=== PATIENT | male | born 1965 | race Caucasian/White ===

== ENCOUNTER 2020-06-05 09:48 | Emergency (ER) | payer SELFPAY ==
[2020-06-05 09:57] VITALS: BP 154/79; PULSE 85; RESP 16; TEMP 36.4; O2SAT 98; BMI 30.7
--- NOTE | 2020-06-05 10:20 | ED_ITS ---
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 He reports intermittent nausea and the pain is burning in nature. He also reports difficulty urinating and painful urination. He has history of UTI in the past but it has been several years. Denies fever, chills, vomiting, diarrhea. No sick contacts, no chest pain, SOB. MD elicited complaint: abdominal pain Pertinent past history: none Onset (ago): day(s) (5) Pain Consistency: constant Location: RUQ Severity: moderate Quality: burning Radiation: R flank and back Migration to: no migration Exacerbating factors: movement Relieving factors: nothing Associated symptoms: nausea Related Data Previous Rx's Medication Instructions Recorded ondansetron HCl [Zofran] 4 mg PO Q8H PRN #7 tab 06/05/20 oxycodone 5 mg PO Q8H PRN #6 tab 06/05/20 valacyclovir [Valtrex] 1,000 mg PO TID #21 tab 06/05/20 Allergies Allergy/AdvReac Type Severity Reaction Status Date / Time No Known Allergies Allergy Verified 06/05/20 10:00 Review of Systems Review of Systems Constitutional: No Fever, No Chills ENT/Mouth: No sore throat, No Rhinorrhea, No Swallowing Difficulty Eyes: No Eye Pain, No Swelling, No Redness Cardiovascular: No Chest Pain, No SOB, No Orthopnea, No Edema Respiratory: No Cough, No Sputum, No Wheezing, No dyspnea Gastrointestinal: + Nausea, No Vomiting, No Diarrhea, + abdominal Pain, No Hematochezia, No Melena Genitourinary: + Dysuria, No Urinary Frequency, No Hematuria Musculoskeletal: No joint pain, No Myalgias Skin: No Skin Lesions, + rash Neuro: No Weakness, No Numbness, No Dizziness, No Headache Psych: No Anxiety/Panic, No Depression Heme/Lymph: No Bruising, No Lymphadenopathy Endocrine: No Polyuria, No Polydipsia Physical Exam Vital Signs: Vital Signs: Last Vital Signs Temp 97.5 F 06/05/20 09:57 Pulse 85 12/23/20 09:57 Resp 16 06/05/20 09:57 BP 154/79 H 06/05/20 09:57 Pulse Ox 98 06/05/20 09:57 Body Mass Index 30.7 Appearance: Alert. Oriented X3. No acute distress. Eyes: Pupils equal, round and reactive to light. ENT: Pharynx normal. Neck: Normal inspection. Neck supple. CVS: Normal heart rate and rhythm. Pulses normal. Respiratory: No respiratory distress. Breath sounds normal. Abdomen: Soft and nontender. +BS x4 Skin: Skin warm and dry. Normal skin color. Unilateral erythematous vesicular rash in RUQ in single dermatome wrapping around to back, tender Extremities: No lower extremity edema. Neuro: Oriented X 3. No motor deficit. No sensory deficit. Course Course Course Narrative: 55 y/o male presenting with RUQ abd pain - exam shows vesicular unilateral rash in a dermatome distribution consistent with Shingles. Will treat. Also reports dysuria, will check UA. No signs of systemic infection. VSS and patient appears non-toxic. Reevaluation(s) Reevaluation #1: UA negative for infection. He is stable for discharge with treatment for herper zoster. MDM - Abdominal Pain Lab Data Labs: Lab Results 06/05/20 Range/Units 10:44 Urine Color YELLOW Urine Appearance CLEAR Urine pH 5.5 (5.0-8.0) Ur Specific Ehrhardt 1.020 (1.005-1.025) Urine Protein NEG (NEG-TRACE) MG/DL Urine Glucose (UA) >=1000 H (NEG) MG/DL Urine Ketones NEG (NEG) MG/DL Urine Blood NEG (NEG) Urine Nitrite NEG (NEG) Ur Leukocyte Esterase NEG (NEG) Critical Care Time Critical Care Time Critical Care Time: No Discharge Plan Discharge Clinical Impression: Shingles Qualifiers: Herpes zoster complications: without complications Qualified Code(s): B02.9 - Zoster without complications Patient Disposition: Home, Self-Care Instructions: Shingles (ED) Additional Instructions: Your exam is consistnet with a viral infection called Shingles or Herpes Zoster. Take the prescribed anti-viral medication to treat it. Follow up with your doctor this week. Your urine test did not show any evidence of infection. If you develop worsening symptoms or any new or concerning symptom come back to the ER for further evalution. Prescriptions: New valacyclovir [Valtrex] 1 gram tablet 1,000 mg PO TID Qty: 21 RF: 0 ondansetron HCl [Zofran] 4 mg tablet 4 mg PO Q8H PRN (Reason: nausea and vomiting) Qty: 7 RF: 0 oxycodone 5 mg tablet 5 mg PO Q8H PRN (Reason: pain) Qty: 6 RF: 0 PMFSH Past Medical History Attestation statement: The following information was validated with the patient. Medical History Diabetes Social History Social History Advance Directives: No Advance Directives Information Provided: No
[2020-06-05 10:59] LABS: Glucose Urine UA >=1000 MG/DL (NEG); Leukocyte Esterase Urine NEG (NEG); Nitrite Urine NEG (NEG); PH 5.5 (5.0-8.0); Urine Blood NEG (NEG); Urine Ketones NEG (NEG); Urine Protein NEG (NEG-TRACE)
[2020-06-05 11:01] LABS: Appearance Urine CLEAR; Color Urine YELLOW
[2020-06-05 11:17] LABS: RBC Urine 0 /HPF (0); WBC Urine 0 /HPF (0-4)
== END 2020-06-05 11:36 | disposition home or self-care (01) ==
LOC: HO.ED 10:46
PROVIDERS: Physician Assistant; Emergency Provider Emergency Medicine; PCP Internal Medicine
DX: B02.9 Zoster without complications (principal); E11.9 Type 2 diabetes mellitus without complications
CPT/HCPCS: 81001; 81003; 99283

== ENCOUNTER 2020-06-09 12:28 | Emergency (ER) | payer SELFPAY ==
[2020-06-09 13:08] VITALS: BP 129/72; PULSE 99; RESP 18; TEMP 36.8; O2SAT 100; BMI 29.0
--- NOTE | 2020-06-09 17:07 | ED.GENADULT ---
HPI - General Adult General Chief complaint: General Medical Stated complaint: rash on side Time Seen by Provider: 06/09/20 16:25 Source: patient Mode of arrival: EMS Limitations: language barrier (Speaks some Mohawk, primary language David. This author speaks this language fluently.) History of Present Illness HPI narrative: 55-year-old male who was seen here 06/05/2020 for right-sided abdominal rash diagnosed with shingles he was subsequently given Valtrex and pain management states that his rash on the right side abdomen is getting better he is here for recheck as well he is requesting refill for his metformin. He is currently awaiting new PCP. Denies any headache, facial rash, chest pain, abdominal pain, nausea vomiting or diarrhea. Onset (ago): day(s) Severity: mild Exacerbating factors: none Treatments prior to arrival: none Related Data Previous Rx's Medication Instructions Recorded ondansetron HCl [Zofran] 4 mg PO Q8H PRN #7 tab 06/05/20 oxycodone 5 mg PO Q8H PRN #6 tab 06/05/20 valacyclovir [Valtrex] 1,000 mg PO TID #21 tab 06/05/20 doxycycline monohydrate 100 mg PO BID 10 Days #20 cap 06/09/20 metformin 1,000 mg PO DAILY 30 Days #30 tab 06/09/20 Allergies Allergy/AdvReac Type Severity Reaction Status Date / Time No Known Allergies Allergy Verified 06/05/20 10:00 Review of Systems Review of Systems: Constitutional: No Weight loss, No Fever, No Chills, No Night Sweats, No Fatigue, No Malaise ENT/Mouth: No Hearing loss, No Ear Pain, No Nasal Congestion, No Sinus Pain, No Hoarseness, No sore throat, No Rhinorrhea, No Swallowing Difficulty Eyes: No Eye Pain, No Swelling, No Redness, No Foreign Body, No Discharge, No Vision Changes Cardiovascular: No Chest Pain, No SOB, No Dyspnea on Exertion, No Orthopnea, No Edema, No Palpitations Respiratory: No Cough, No Sputum, No Wheezing, No Smoke Exposure, No Dyspnea Gastrointestinal: No Nausea, No Vomiting, No Diarrhea, No Constipation, No abdominal Pain Genitourinary: no irregular bleeding, No Dysuria, No Urinary Frequency, No Hematuria, No Urinary Incontinence, No Urgency, No Flank Pain Musculoskeletal: No joint pain, No Myalgias, No Joint Swelling Skin: No Skin Lesions, As noted in HPI Neuro: No Weakness, No Numbness, No Paresthesias, No Loss of Consciousness, No Dizziness, No Headache Psych: No Social Issues Heme/Lymph: No Bruising, No Bleeding,No Lymphadenopathy Endocrine: No Polyuria, No Polydipsia, No Temperature Intolerance Yes all other systems are reviewed and are negative [facility] Past Medical History Medical History Diabetes Social History Social History Advance Directives: No Advance Directives Information Provided: No Physical Exam Vital Signs: Vital Signs: Last Vital Signs Temp 98.3 F 06/09/20 13:08 Pulse 99 06/09/20 13:08 Resp 18 06/09/20 13:08 BP 129/72 06/09/20 13:08 Pulse Ox 100 06/09/20 13:08 Body Mass Index 29.0 Reviewed Const: General: cooperative and healthy appearing; No acute distress or intoxicated appearing Nutritional Appearance: average body habitus Orientation/consciousness: patient oriented x3 HENMT: Head: Yes normal to inspection Ears: hearing grossly normal bilaterally Eyes: General: appearance normal, both eyes and all related structures Visual Melvin: normal visual melvin by confrontation Chest: Chest palpation & inspection: normal inspection of the chest Resp: Effort & Inspection: normal respiratory effort Cardio: Jugular venous distension: no JVD Rhythm: regular rhythm Heart sounds: S1 normal heart sound present and S2 normal heart sound present GI: Other: Inspection: Yes normal to inspection Palpation (GI): Soft to palpation Percussion: Yes normal to percussion Auscultation: normal bowel sounds : General: Yes no CVA tenderness Back/Spine/Pelvis: Back: no CVA tenderness Skin: General skin exam: no rashes or lesions noted Neuro: General: patient oriented x3 Extrem: General: Yes normal to inspection Course Course Course Narrative: I saw this patient along with Barbara BADILLO on the the shingle rash is starting to scab over there is some very mild erythema. Will start him on doxycycline for this. Additionally he is requesting courtesy bridging prescription for metformin which he is taking 1000 mg once daily. His last POC was this morning within normal limits. He is awaiting new primary care doctor. Discharge Plan Discharge Clinical Impression: Herpes zoster Qualifiers: Herpes zoster complications: unspecified herpes zoster complication Qualified Code(s): B02.8 - Zoster with other complications Patient Disposition: Home, Self-Care Instructions: Shingles (ED), Cellulitis (ED) Additional Instructions: The shingles are improving Continue with her antiviral therapy as discussed I will start you on oral antibiotics for the slight redness that can be associated with some early cellulitis which is a skin infection Keep site covered Return if any concerns or worsening symptoms Otherwise follow up with primary care doctor as discussed Thank you Prescriptions: New doxycycline monohydrate 100 mg capsule 100 mg PO BID 10 Days Qty: 20 RF: 0 metformin 1,000 mg tablet 1,000 mg PO DAILY 30 Days Qty: 30 RF: 1 No Action valacyclovir [Valtrex] 1 gram tablet 1,000 mg PO TID Qty: 21 RF: 0 ondansetron HCl [Zofran] 4 mg tablet 4 mg PO Q8H PRN (Reason: nausea and vomiting) Qty: 7 RF: 0 oxycodone 5 mg tablet 5 mg PO Q8H PRN (Reason: pain) Qty: 6 RF: 0 Referrals: Liana Stacy MD [Primary Care Provider] - 1 week Interventions: ED Discharge Assessment Last Done: 06/09/20 17:21 Discharge Date/Time: 06/09/20 17:26
== END 2020-06-09 17:26 | disposition home or self-care (01) ==
PROVIDERS: Emergency Provider Emergency Medicine; PCP Internal Medicine
DX: B02.8 Zoster with other complications (principal); R21 Rash and other nonspecific skin eruption; Z79.899 Other long term (current) drug therapy
CPT/HCPCS: 99283

== ENCOUNTER 2020-12-23 09:34 | Outpatient (REF) | payer SELFPAY ==
[2020-12-23 10:41] LABS: Estimated Average Glucose 183 mg/dL
[2020-12-23 10:51] LABS: Creatinine Urine 78.27 mg/dL; Microalbum/Creatinine Ratio Ur 10.2 ug/mg cr
[2020-12-23 10:54] LABS: Alanine Aminotransferase 24 U/L (0-40); Albumin Level 4.2 g/dL (3.5-5.0); Alkaline Phosphatase 50 U/L (39-117); Anion Gap 11 (12-20); Aspartate Amino Transferase 16 U/L (5-37); Bilirubin Total 1.7 mg/dL (0.0-1.0); Blood Urea Nitrogen 16 mg/dL (9-16); Calcium 9.4 mg/dL (8.4-10.2); Carbon Dioxide 26 mmol/L (22-29); Chloride 105 mmol/L (96-108); Cholesterol 205 mg/dL; Estimated Glomerular Filt Rate > 60; Glucose Random 204 mg/dL (60-115); HDL Cholesterol 65 mg/dL; LDL Cholesterol Calculated 126 mg/dl; Potassium 4.4 mmol/L (3.3-5.1); Sodium 138 mmol/L (135-145); Total Protein 6.8 g/dL (6.5-8.0); Triglycerides 74 mg/dL
== END 2020-12-23 09:35 | disposition home or self-care (01) ==
LOC: HO.LAB 09:34
PROVIDERS: PCP Internal Medicine; Visit Provider Internal Medicine
DX: A60.02 Herpesviral infection of other male genital organs (principal); E11.65 Type 2 diabetes mellitus with hyperglycemia; I10 Essential (primary) hypertension; N48.6 Induration penis plastica
CPT/HCPCS: 36415; 80053; 80061; 82043; 83036

== ENCOUNTER → 2021-02-20 11:50 | Outpatient (BNVA) | payer SELFPAY | PROVIDERS: PCP Internal Medicine; Visit Provider Urology | DX: N47.1 Phimosis (principal); N48.6 Induration penis plastica | CPT/HCPCS: 99202 ==

== ENCOUNTER 2021-04-01 10:05 | Outpatient (REF) | payer SELFPAY ==
[2021-04-01 11:07] LABS: Estimated Average Glucose 203 mg/dL; Hemoglobin A1c % 8.7 %
[2021-04-01 11:40] LABS: Alanine Aminotransferase 23 U/L (0-40); Albumin Level 4.4 g/dL (3.5-5.0); Alkaline Phosphatase 53 U/L (39-117); Anion Gap 12 (12-20); Aspartate Amino Transferase 16 U/L (5-37); Bilirubin Total 1.5 mg/dL (0.0-1.0); Blood Urea Nitrogen 14 mg/dL (9-16); Calcium 9.2 mg/dL (8.4-10.2); Carbon Dioxide 27 mmol/L (22-29); Chloride 105 mmol/L (96-108); Cholesterol 171 mg/dL; Estimated Glomerular Filt Rate > 60; Glucose Random 214 mg/dL (60-115); HDL Cholesterol 56 mg/dL; LDL Cholesterol Calculated 98 mg/dl; Sodium 139 mmol/L (135-145); Total Protein 6.9 g/dL (6.5-8.0); Triglycerides 88 mg/dL
== END 2021-04-01 10:06 | disposition home or self-care (01) ==
LOC: HO.LAB 10:05
PROVIDERS: PCP Internal Medicine; Visit Provider Internal Medicine
DX: E11.65 Type 2 diabetes mellitus with hyperglycemia (principal); I10 Essential (primary) hypertension; L84 Corns and callosities; N30.00 Acute cystitis without hematuria; R80.9 Proteinuria, unspecified
CPT/HCPCS: 36415; 80053; 80061; 83036

== ENCOUNTER 2021-07-15 11:16 | Outpatient (REF) | payer MEDICAID, OTHER, SELFPAY ==
[2021-07-15 12:15] LABS: Estimated Average Glucose 209 mg/dL; Hemoglobin A1c % 8.9 %
[2021-07-15 12:38] LABS: Alanine Aminotransferase 26 U/L (0-40); Albumin Level 4.4 g/dL (3.5-5.0); Alkaline Phosphatase 60 U/L (39-117); Anion Gap 12 (12-20); Aspartate Amino Transferase 15 U/L (5-37); Bilirubin Total 1.6 mg/dL (0.0-1.0); Blood Urea Nitrogen 15 mg/dL (9-16); Calcium 9.7 mg/dL (8.4-10.2); Carbon Dioxide 28 mmol/L (22-29); Chloride 104 mmol/L (96-108); Estimated Glomerular Filt Rate > 60; Glucose Random 306 mg/dL (60-115); Potassium 5.1 mmol/L (3.3-5.1); Sodium 139 mmol/L (135-145); Total Protein 7.2 g/dL (6.5-8.0)
== END 2021-07-15 11:17 | disposition home or self-care (01) ==
LOC: HO.LAB 11:16
PROVIDERS: PCP Internal Medicine; Visit Provider Internal Medicine
DX: Z00.01 Encounter for general adult medical examination with abnormal findings (principal); E11.65 Type 2 diabetes mellitus with hyperglycemia; R80.9 Proteinuria, unspecified; Z91.14 Patient's other noncompliance with medication regimen
CPT/HCPCS: 36415; 80053; 83036

== ENCOUNTER 2021-09-26 11:53 | Outpatient (REF) | payer MEDICAID, OTHER, SELFPAY ==
[2021-09-26 13:35] LABS: Alanine Aminotransferase 21 U/L (0-40); Albumin Level 4.2 g/dL (3.5-5.0); Alkaline Phosphatase 59 U/L (39-117); Anion Gap 11 (12-20); Aspartate Amino Transferase 13 U/L (5-37); Bilirubin Total 1.5 mg/dL (0.0-1.0); Blood Urea Nitrogen 12 mg/dL (9-16); Calcium 9.6 mg/dL (8.4-10.2); Carbon Dioxide 29 mmol/L (22-29); Chloride 103 mmol/L (96-108); Estimated Glomerular Filt Rate > 60; Glucose Random 280 mg/dL (60-115); Potassium 4.8 mmol/L (3.3-5.1); Sodium 138 mmol/L (135-145); Total Protein 6.9 g/dL (6.5-8.0)
[2021-09-26 13:46] LABS: Estimated Average Glucose 229 mg/dL; Hemoglobin A1c % 9.6 %
== END 2021-09-26 11:54 | disposition home or self-care (01) ==
LOC: HO.LAB 11:53
PROVIDERS: PCP Internal Medicine; Visit Provider Internal Medicine
DX: E11.65 Type 2 diabetes mellitus with hyperglycemia (principal); R80.9 Proteinuria, unspecified
CPT/HCPCS: 36415; 80053; 83036

== ENCOUNTER 2021-11-11 10:28 | Emergency (ER) | payer MEDICAID, OTHER, SELFPAY ==
--- NOTE | ~2021-11-11 | XR_ITS ---
EXAMINATION: XR KNEE, RIGHT CLINICAL INFORMATION: Right knee pain COMPARISON: None TECHNIQUE: Four views of the right knee. FINDINGS: No joint effusion, fracture, dislocation or destructive process. XR/XR knee RT 2V IMPRESSION: Unremarkable study. No acute findings.
[2021-11-11 11:02] VITALS: BP 117/73; PULSE 83; RESP 18; TEMP 36.8; O2SAT 98; BMI 27.3
--- NOTE | 2021-11-11 13:09 | ED_ITS ---
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 Patient tells me when he walks he feels like his knee is unstable and gives out on him. Patient also feels like there is swelling. Patient denies any redness, warmth, fevers, chill s. Related Data Previous Rx's Medication Instructions Recorded ondansetron HCl 4 mg tablet 4 mg PO Q8H PRN #7 tab 06/05/20 (Zofran) oxycodone 5 mg tablet 5 mg PO Q8H PRN #6 tab 06/05/20 valacyclovir 1 gram tablet 1,000 mg PO TID #21 tab 06/05/20 (Valtrex) doxycycline monohydrate 100 mg 100 mg PO BID 10 Days #20 cap 06/09/20 capsule metformin 1,000 mg tablet 1,000 mg PO DAILY 30 Days #30 tab 06/09/20 clotrimazole-betamethasone 1 1 appl TOPICAL BID 28 Days #15 g 02/20/21 %-0.05 % topical cream naproxen 500 mg tablet 500 mg PO BID PRN #30 tab 11/11/21 Allergies Allergy/AdvReac Type Severity Reaction Status Date / Time No Known Allergies Allergy Verified 11/11/21 11:00 Review of Systems Review of Systems: Yes all other systems are reviewed and are negative Constitutional: Constitutional: Reports no additional constitutional complaints, Denies body ache(s), Denies chills, Denies fever(s), Denies headache(s) and Denies weakness Eyes: Eyes: Reports no additional eye complaints and Denies change in vision ENT: Reports system reviewed and no additional complaints, except as documented, Denies dizziness, Denies headache(s), Denies nasal congestion, Denies nasal discharge and Denies neck pain Cardiovascular: Cardiovascular: Reports no additional cardiovascular complaints, Denies chest pain, Denies leg edema and Denies dyspnea Respiratory: Respiratory: Reports no additional respiratory complaints, Denies cough and Denies dyspnea Gastrointestinal: Gastrointestinal: Reports no additional gastrointestinal complaints, Denies abdominal pain, Denies diarrhea, Denies nausea and Denies vomiting Genitourinary: Genitourinary: Denies urinary incontinence Musculoskeletal: Musculoskeletal: Reports no additional musculoskeletal complaints, Denies back pain, Reports arthralgias, Reports joint swelling, Denies neck pain, Denies numbness and Denies tingling Integumentary/Breasts: Skin/Breast: Reports system reviewed and no additional complaints, except as docu and Denies rash Neurologic: Reports system reviewed and no additional complaints, except as documented, Denies Abnormal speech present, Denies dizziness, Denies headache(s), Denies numbness, Denies tingling and Denies weakness PMF Past Medical History Attestation statement: The following information was validated with the patient. Source: old records reviewed and nursing notes reviewed Medical History Diabetes Social History Social History Advance Directives: No Advance Directives Information Provided: No Physical Exam Vital Signs: Vital Signs: Last Vital Signs Temp 98.3 F 11/11/21 11:02 Pulse 83 11/11/21 11:02 Resp 18 11/11/21 11:02 BP 117/73 11/11/21 11:02 Pulse Ox 98 11/11/21 11:02 BMI result Body Mass Index 27.3 Const: General: cooperative, healthy appearing, comfortable and no acute distress Orientation/consciousness: patient oriented x3 Limitations: no limitations HEENT: Head: Yes normal to inspection Ears: hearing grossly normal bilaterally General nose exam: Normal external nose present Face and sinus: Yes normal facial exam Mouth: Normal oral and palatal mucosa present Throat: Yes posterior oropharynx normal Eyes: General: appearance normal, both eyes and all related structures Pupils: Equal, round and reactive pupils present Neck: Neck: Yes normal visual inspection Chest: Chest palpation & inspection: normal inspection of the chest Resp: Effort & Inspection: normal respiratory effort Auscultation: clear to auscultation bilaterally Cardio: Rate: regular rate Rhythm: regular rhythm Peripheral pulses: Peripheral pulses 2+ throughout GI: Inspection: Yes normal to inspection Palpation (GI): Soft to palpation and nontender Auscultation: normal bowel sounds Back/Spine/Pelvis: Thoracic/Lumbar Spine: thoracic and lumbar spine normal to inspection Skin: General skin exam: no rashes or lesions noted Neuro: General: patient oriented x3, no focal motor deficits and normal sensation to monofilament Cranial nerves: Yes Equal, round and reactive pupils present Cognition (Neuro): normal cognition Speech: No Abnormal speech present Gait exam (Neuro): Normal gait present Motor exam (neuro): 5/5 motor strength present throughout Extrem: Other: There is pain and swelling to the medial ligament on the right knee. Flexion and extension is normal. There is some laxity with valgus stress test. No swelling, warmth, redness General: Yes normal to inspection Course Course Course Narrative: 56-year-old male here with right knee pain after twisting injury 2 months ago. There is swelling and tenderness along the medial joint line and medial ligament. X-ray show no bony abnormality. Likely MCL sprain. Patient given ca ne due to age, Shay wrap for home. Recommend NSAID and follow-up with Orthopedics. Reviewed worrisome signs and symptoms of when to return to the emergency department. Comfortable discharge home. Reviewed rice [facility] - Extremity Injury (Lower) Medical Records Attestation: I reviewed the patient's medical records. Lab Data Attestation: I reviewed the patient's lab results. Imaging Data knee x-ray: Attestation: I personally reviewed and interpreted this imaging study as follows: Radiologist's impression: EXAMINATION: XR KNEE, RIGHT? CLINICAL INFORMATION: Right knee pain? COMPARISON: None? TECHNIQUE: Four views of the right knee. FINDINGS: No joint effusion, fracture, dislocation or destructive process.? XR/XR knee RT 2V IMPRESSION: Unremarkable study. No acute findings. ? Procedures Procedure Narrative Procedure Narrative: shay wrap, cane Discharge Plan Discharge Clinical Impression: MCL sprain of right knee Patient Disposition: Home, Self-Care Instructions: Knee Sprain (ED) Additional Instructions: Rest, limit weight-bearing, use Shay wrap for comfort Ice to the area Follow-up with Orthopedics Prescriptions: New naproxen 500 mg tablet 500 mg PO BID PRN (Reason: pain) Qty: 30 0RF No Action valacyclovir [Valtrex] 1 gram tablet 1,000 mg PO TID Qty: 21 0RF ondansetron HCl [Zofran] 4 mg tablet 4 mg PO Q8H PRN (Reason: nausea and vomiting) Qty: 7 0RF oxycodone 5 mg tablet 5 mg PO Q8H PRN (Reason: pain) Qty: 6 0RF Rx Instructions: for 3 days doxycycline monohydrate 100 mg capsule 100 mg PO BID 10 Days Qty: 20 0RF metformin 1,000 mg tablet 1,000 mg PO DAILY 30 Days Qty: 30 1RF clotrimazole-betamethasone 1-0.05 % cream 1 appl topical BID 28 Days Qty: 15 0RF Rx Instructions: Apply thin coat 2 times per day Referrals: [facility] [place] [facility] [Provider Group] - 1 week (as needed) Liana Stacy MD [Primary Care Provider] - 1 week (as needed) Stand Alone Forms: Work/School Release Interventions: ED Discharge Assessment Last Done: 11/11/21 13:09
== END 2021-11-11 13:11 | disposition home or self-care (01) ==
PROVIDERS: Emergency Provider Emergency Medicine; PCP Internal Medicine
DX: S83.91XA Sprain of unspecified site of right knee, initial encounter (principal); X50.1XXA Overexertion from prolonged static or awkward postures, initial encounter; E11.9 Type 2 diabetes mellitus without complications; Y93.41 Activity, dancing; Y92.9 Unspecified place or not applicable; Y99.9 Unspecified external cause status
CPT/HCPCS: 73560; 99283

== ENCOUNTER 2021-12-02 09:11 | Emergency (ER) | payer MEDICAID, OTHER, SELFPAY ==
[2021-12-02 09:17] VITALS: BP 141/72; PULSE 88; RESP 16; TEMP 37.1; O2SAT 98; BMI 26.6
--- NOTE | 2021-12-02 10:05 | ED.EXTPRO ---
HPI - Extremity Problem General Chief complaint: Extremity Problem Stated complaint: r knee pain Time Seen by Provider: 12/02/21 09:30 Source: patient and radiologist chief of breast imaging (David) Mode of arrival: ambulatory Limitations: language barrier (David) History of Present Illness HPI Narrative: 56-year-old male here with reports of right knee pain and swelling for 2 months. Patient initially had an injury while he was dancing. He tells me he had a twisting injury at that time. Since then he is having intermittent pain and swelling. He was seen here on November 11 in the emergency room. He had x-rays which showed no acute finding. It was recommended he follow-up with his primary care doctor. He did see his primary care doctor was given referral to physical therapy. He tells me that he has been unable to establish an appointment and he thinks it is secondary to his language barrier. He is using naproxen once every other day. Still having continued pain and swelling which is worsened with weight-bearing it feels like the knee is unstable. No redness, warmth, fevers or chills. Related Data Previous Rx's Medication Instructions Recorded ondansetron HCl 4 mg tablet 4 mg PO Q8H PRN nausea and 06/05/20 (Zofran) vomiting #7 tabs oxycodone 5 mg tablet 5 mg PO Q8H PRN pain #6 tabs 06/05/20 valacyclovir 1 gram tablet 1,000 mg PO TID #21 tabs 06/05/20 (Valtrex) doxycycline monohydrate 100 mg 100 mg PO BID 10 days #20 caps 06/09/20 capsule metformin 1,000 mg tablet 1,000 mg PO DAILY 30 days #30 tabs 06/09/20 clotrimazole-betamethasone 1 1 appl topical BID 4 weeks #15 02/20/21 %-0.05 % topical cream grams naproxen 500 mg tablet 500 mg PO BID PRN pain #30 tabs 11/11/21 Allergies Allergy/AdvReac Type Severity Reaction Status Date / Time No Known Allergies Allergy Verified 12/02/21 09:15 Review of Systems Review of Systems: Yes all other systems are reviewed and are negative Constitutional: Constitutional: Reports no additional constitutional complaints, Denies body ache(s), Denies chills, Denies fever(s), Denies headache(s) and Denies weakness Eyes: Eyes: Reports no additional eye complaints and Denies change in vision ENT: Reports system reviewed and no additional complaints, except as documented, Denies dizziness, Denies headache(s), Denies nasal congestion, Denies nasal discharge and Denies neck pain Cardiovascular: Cardiovascular: Reports no additional cardiovascular complaints, Denies chest pain, Denies leg edema and Denies dyspnea Respiratory: Respiratory: Reports no additional respiratory complaints, Denies cough and Denies dyspnea Gastrointestinal: Gastrointestinal: Reports no additional gastrointestinal complaints, Denies abdominal pain, Denies diarrhea, Denies nausea and Denies vomiting Genitourinary: Genitourinary: Denies urinary incontinence Musculoskeletal: Musculoskeletal: Reports no additional musculoskeletal complaints, Denies back pain, Reports arthralgias, Reports joint swelling, Denies neck pain, Denies numbness and Denies tingling Integumentary/Breasts: Skin/Breast: Reports system reviewed and no additional complaints, except as docu and Denies rash Neurologic: Reports system reviewed and no additional complaints, except as documented, Denies Abnormal speech present, Denies dizziness, Denies headache(s), Denies numbness, Denies tingling and Denies weakness PMFSH Past Medical History Attestation statement: The following information was validated with the patient. Source: old records reviewed and nursing notes reviewed Medical History Diabetes Social History Social History Advance Directives: No Advance Directives Information Provided: Yes Physical Exam Vital Signs: Vital Signs: Last Vital Signs Temp 98.8 F 12/02/21 09:17 Pulse 88 12/02/21 09:17 Resp 16 12/02/21 09:17 BP 141/72 H 12/02/21 09:17 Pulse Ox 98 12/02/21 09:17 O2 Del Method 12/02/21 09:17 BMI result Body Mass Index 26.6 Const: General: cooperative, healthy appearing, comfortable and no acute distress Orientation/consciousness: patient oriented x3 Limitations: no limitations HEENT: Head: Yes normal to inspection Ears: hearing grossly normal bilaterally General nose exam: Normal external nose present Face and sinus: Yes normal facial exam Mouth: Normal oral and palatal mucosa present Throat: Yes posterior oropharynx normal Eyes: General: appearance normal, both eyes and all related structures Pupils: Equal, round and reactive pupils present Neck: Neck: Yes normal visual inspection Chest: Chest palpation & inspection: normal inspection of the chest Resp: Effort & Inspection: normal respiratory effort Auscultation: clear to auscultation bilaterally Cardio: Rate: regular rate Rhythm: regular rhythm Peripheral pulses: Peripheral pulses 2+ throughout GI: Inspection: Yes normal to inspection Palpation (GI): Soft to palpation and nontender Auscultation: normal bowel sounds Back/Spine/Pelvis: Thoracic/Lumbar Spine: thoracic and lumbar spine normal to inspection Skin: General skin exam: no rashes or lesions noted Neuro: General: patient oriented x3, no focal motor deficits and normal sensation to monofilament Cranial nerves: Yes Equal, round and reactive pupils present Cognition (Neuro): normal cognition Speech: No Abnormal speech present Gait exam (Neuro): Normal gait present Motor exam (neuro): 5/5 motor strength present throughout Extrem: Other: There is tenderness to the anterior knee. There is full range of motion. I do not appreciate any ligamental laxity. There is no warmth or redness. General: Yes normal to inspection MDM - Extremity (Nontraumatic) MDM Narrative Medical decision making narrative: 56-year-old male here with persistent right knee pain and subjective swelling for the last 2 months after twisting injury. Patient has had negative x-rays. He is trying to establish a follow-up with physical therapy but is having difficulty which he believes is secondary to his language barrier. He is intermittently using naproxen. 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 He is not using any assistive devices. No redness, warmth with full range of motion. Likely knee sprain and physical therapy is appropriate. He does have a family member who he can utilize to help him call who speaks [place]. Recommended rice. Recommended increasing naproxen twice daily. Recommended rest. Reviewed worrisome signs and symptoms of when to return to the emergency department. Comfortable discharge home. Medical Records Attestation: I reviewed the patient's medical records. Lab Data Attestation: I reviewed the patient's lab results. Discharge Plan Discharge Clinical Impression: Right knee sprain Patient Disposition: Home, Self-Care Instructions: Knee Sprain (ED) Additional Instructions: Continue naproxen Ice, elevate Call physical therapy to set up appointment Continue to follow with PCP Prescriptions: No Action valacyclovir [Valtrex] 1 gram tablet 1,000 mg PO TID Qty: 21 0RF ondansetron HCl [Zofran] 4 mg tablet 4 mg PO Q8H PRN (Reason: nausea and vomiting) Qty: 7 0RF oxycodone 5 mg tablet 5 mg PO Q8H PRN (Reason: pain) Qty: 6 0RF Rx Instructions: for 3 days doxycycline monohydrate 100 mg capsule 100 mg PO BID 10 Days Qty: 20 0RF metformin 1,000 mg tablet 1,000 mg PO DAILY 30 Days Qty: 30 1RF naproxen 500 mg tablet 500 mg PO BID PRN (Reason: pain) Qty: 30 0RF clotrimazole-betamethasone 1-0.05 % cream 1 appl topical BID 28 Days Qty: 15 0RF Rx Instructions: Apply thin coat 2 times per day Stand Alone Forms: Work/School Release Interventions: ED Discharge Assessment Last Done: 12/02/21 10:24 Discharge Date/Time: 12/02/21 10:24
--- NOTE | 2021-12-02 10:23 | PC.NURSE ---
this rn spoke with physical therapy here at hospital and pt has an appt tyshawn on december 23 at 10:45 and will have an ore miner available for him that day. pt understands plan.
== END 2021-12-02 10:24 | disposition home or self-care (01) ==
LOC: HO.ED 10:16
PROVIDERS: Emergency Provider Emergency Medicine; PCP Internal Medicine
DX: M25.561 Pain in right knee (principal); Z79.899 Other long term (current) drug therapy
CPT/HCPCS: 99283

== ENCOUNTER 2022-01-09 08:41 | Outpatient (REF) | payer MEDICAID, OTHER, SELFPAY ==
[2022-01-09 09:37] LABS: Estimated Average Glucose 212 mg/dL
[2022-01-09 09:57] LABS: Alanine Aminotransferase 22 U/L (0-40); Albumin Level 4.2 g/dL (3.5-5.0); Alkaline Phosphatase 55 U/L (39-117); Anion Gap 11 (12-20); Aspartate Amino Transferase 14 U/L (5-37); Bilirubin Total 1.6 mg/dL (0.0-1.0); Blood Urea Nitrogen 15 mg/dL (9-16); Calcium 8.9 mg/dL (8.4-10.2); Carbon Dioxide 28 mmol/L (22-29); Chloride 102 mmol/L (96-108); Cholesterol 197 mg/dL; Estimated Glomerular Filt Rate > 60; Glucose Random 207 mg/dL (60-115); HDL Cholesterol 56 mg/dL; LDL Cholesterol Calculated 128 mg/dl; Potassium 4.3 mmol/L (3.3-5.1); Sodium 137 mmol/L (135-145); Total Protein 6.8 g/dL (6.5-8.0); Triglycerides 67 mg/dL
== END 2022-01-09 08:42 | disposition home or self-care (01) ==
LOC: HO.LAB 08:41
PROVIDERS: PCP Internal Medicine; Visit Provider Internal Medicine
DX: E11.65 Type 2 diabetes mellitus with hyperglycemia (principal); I10 Essential (primary) hypertension; Z68.29 Body mass index [BMI] 29.0-29.9, adult
CPT/HCPCS: 36415; 80053; 80061; 83036

== ENCOUNTER 2022-02-17 09:58 | Outpatient (REF) | payer MEDICAID, OTHER, SELFPAY ==
[2022-02-17 10:18] LABS: MANUAL DIFF FLAG NO
[2022-02-17 10:38] LABS: Basophils Percent Auto 0.6 % (0-2); Eosinophils Absolute Auto 0.3 X10*3/uL (0.0-0.4); Eosinophils Percent Auto 4.1 % (0-4); Hematocrit 44.4 % (42.0-52.0); Imm Gran Abs Auto 0.02 X10*3/uL (0.00-0.03); Imm Gran Pct Auto 0.3 % (0.0-0.4); Lymphocytes Absolute Auto 2.4 X10*3/uL (1.2-4.9); Lymphocytes Percent Auto 38.1 % (20-40); Mean Corpuscular HGB Conc 33.8 g/dl (31.0-36.0); Mean Corpuscular Hemoglobin 29.1 pg (27.0-33.0); Mean Corpuscular Volume 86.2 fL (80.0-98.0); Mean Platelet Volume 9.4 fL (9.4-12.4); Monocytes Absolute Auto 0.5 X10*3/uL (0.1-1.2); Monocytes Percent Auto 7.7 % (2-11); Neutrophils Absolute Auto 3.1 x10*3/uL (2.0-8.3); Neutrophils Percent Auto 49.2 % (45-73); Platelet Count 268 X10*3/uL (160-400); Red Blood Count 5.15 X10*6/uL (4.60-5.80); Red Cell Distribution Width 12.3 % (11.0-16.0); White Blood Count 6.4 X10*3/uL (4.8-10.8)
[2022-02-17 10:54] LABS: Estimated Average Glucose 214 mg/dL; Hemoglobin A1c % 9.1 %
[2022-02-17 11:02] LABS: Alanine Aminotransferase 21 U/L (0-40); Albumin Level 4.4 g/dL (3.5-5.0); Alkaline Phosphatase 50 U/L (39-117); Anion Gap 15 (12-20); Aspartate Amino Transferase 18 U/L (5-37); Bilirubin Total 1.7 mg/dL (0.0-1.0); Blood Urea Nitrogen 16 mg/dL (9-16); Calcium 9.3 mg/dL (8.4-10.2); Carbon Dioxide 27 mmol/L (22-29); Chloride 103 mmol/L (96-108); Cholesterol 148 mg/dL; Estimated Glomerular Filt Rate > 60; Glucose Random 125 mg/dL (60-115); HDL Cholesterol 64 mg/dL; LDL Cholesterol Calculated 75 mg/dl; Potassium 4.7 mmol/L (3.3-5.1); Sodium 140 mmol/L (135-145); Total Protein 7.1 g/dL (6.5-8.0); Triglycerides 47 mg/dL
[2022-02-17 11:02] LABS: Creatinine Urine 231.23 mg/dL; Microalbum/Creatinine Ratio Ur 5.6 ug/mg cr
[2022-02-17 11:23] LABS: Prostate Specific Antigen 1.66 ng/mL (<0.05-4.0)
== END 2022-02-17 09:59 | disposition home or self-care (01) ==
LOC: HO.LAB 09:58
PROVIDERS: PCP Internal Medicine; Visit Provider Internal Medicine
DX: Z12.5 Encounter for screening for malignant neoplasm of prostate (principal); E11.65 Type 2 diabetes mellitus with hyperglycemia; E78.00 Pure hypercholesterolemia, unspecified; I10 Essential (primary) hypertension; R80.9 Proteinuria, unspecified
CPT/HCPCS: 36415; 80053; 80061; 82043; 83036; 84153; 85025

== ENCOUNTER 2022-02-24 08:00 | Outpatient (RCR) | payer MEDICAID, OTHER, SELFPAY ==
[2021-12-23 10:55] VITALS: BP 136/60; PULSE 87
--- NOTE | 2021-12-23 12:13 | MHC.PT.EP ---
[facility] [place] Office [place] Office [place] Office [address] George Tamayo [address] [phone] F: [phone] F: [phone] F: [phone] F: [phone] Physical Therapy Plan of Care Date of Evaluation: Date of Surgery: NA Diagnosis: MCL sprain R knee Assessment: Ronal is a 56 year old male who is referred to PT for MCL strain for R knee . He presents with signs and symptoms consistent with a potential arthritic flare up in his R knee. He reports being I with ADLs but has avoided doing activities at home such as cleaning due to pain after standing for 12 hours each day at work. Upon examination he presents with gross B weakness in LE strength and limited knee extension ROM. Ronal will benefit from PT to address the aforementioned impairments and receive education on gait mechanics, functional movement patterns, and suggestions on how to modify task at work. Frequency and Duration: The patient will be seen 2/ week for 4 weeks Short Term Goals: Patient will demonstrate equal knee extension B to promote a more dynamic posture with less tissue strain in 2 weeks. Patient will report a 50% decrease in pain which will allow him to return to cleaning activities at home in 2 weeks. Assisted Goals: Patient will be I with HEP to allow for alf pain management strategies and maintain level of function in 4 weeks. Patient will demonstrate a 1/2 grade increase in strength which will allow him to walk, navigate stairs, and stand for extended periods of time in 4 weeks. Treatment Plan: Modalities to reduce pain, spasms and effusion. Manual therapy to restore motion and function. Therapeutic exercise to improve strength and flexibility. Neuromuscular re-education for posture and balance. Therapeutic activities to return to functional activities of daily living. Electronically signed by: Augustina Cristobal PT DPT Please sign and return to therapist. Thank you for your referral.
--- NOTE | 2022-02-24 09:01 | MHC.PT.DC ---
[facility] [place] Office [place] Office [place] Office [address] George Tamayo [address] [phone] F: [phone] F: [phone] F: [phone] F: [phone] Physical Therapy Discharge Report Diagnosis: MCL sprain R knee Date of Surgery: NA Date of Evaluation: 12/23/21 Date of Discharge: 02/24/22 Treatments to Date: 11 Cancellations to Date: 0 No Shows to Date: 2 Discharge Status: Improved Function Independent with HEP Discharge Summary: Ronal arrived stating he performed the exercises over the week and noticed having less pain today. He has completed 11 PT visits and has made some improvements. Compliance with HEP is questionable. He however has all his HEP and is independent with them. He is therefore being d/c from PT today and was educated and continuing HEP until painfree. He was in agreement with the plan. Electronically signed by: Augustina Cristobal PT DPT Please sign and return to therapist. Thank you for your referral.
== END 2022-02-24 09:01 | disposition home or self-care (01) ==
LOC: HO.PT 08:00
PROVIDERS: PCP Internal Medicine; Visit Provider Internal Medicine
DX: S83.411D Sprain of medial collateral ligament of right knee, subsequent encounter (principal)
CPT/HCPCS: 97110; 97112; 97161; 97530

== ENCOUNTER 2022-05-11 09:08 | Outpatient (REF) | payer MEDICAID, OTHER, SELFPAY | END 2022-05-11 09:09 | disposition home or self-care (01) | LOC: HO.HOSX 09:08 | PROVIDERS: Visit Provider Orthopaedic Surgery | DX: M17.11 Unilateral primary osteoarthritis, right knee (principal); M23.91 Unspecified internal derangement of right knee; E11.9 Type 2 diabetes mellitus without complications | CPT/HCPCS: 36415; 73560; 73565; 80053; 83036; 99202 ==

== ENCOUNTER 2022-05-11 09:14 | Outpatient (REF) | payer MEDICAID, OTHER, SELFPAY ==
--- NOTE | ~2022-05-11 | XR_ITS ---
EXAMINATION: XR KNEE, RIGHT XR KNEE STANDING, BILATERAL CLINICAL INFORMATION: Right knee pain. COMPARISON: None TECHNIQUE: AP view bilateral standing knees. Right knee two views. FINDINGS: AP STANDING BILATERAL KNEES: There is mild reduction in the medial and lateral compartment joint spaces of both knees. No bony erosive changes. There are no loose bodies. No visible acute fracture or dislocation. RIGHT KNEE: There are no loose bodies. The patellofemoral compartment joint space is minimally reduced. There are anterior inferior and anterior superior patellar enthesophytes. There is a minimal suprapatellar joint effusion. XR/XR knee RT 2V IMPRESSION: Mild degenerative changes of the bilateral knee joints. There are minimal superior patellar enthesophytes and minimal joint effusion of the right knee. No acute fracture or dislocation is seen.
--- NOTE | ~2022-05-11 | XR_ITS ---
EXAMINATION: XR KNEE, RIGHT XR KNEE STANDING, BILATERAL CLINICAL INFORMATION: Right knee pain. COMPARISON: None TECHNIQUE: AP view bilateral standing knees. Right knee two views. FINDINGS: AP STANDING BILATERAL KNEES: There is mild reduction in the medial and lateral compartment joint spaces of both knees. No bony erosive changes. There are no loose bodies. No visible acute fracture or dislocation. RIGHT KNEE: There are no loose bodies. The patellofemoral compartment joint space is minimally reduced. There are anterior inferior and anterior superior patellar enthesophytes. There is a minimal suprapatellar joint effusion. XR/XR knee standing BI IMPRESSION: Mild degenerative changes of the bilateral knee joints. There are minimal superior patellar enthesophytes and minimal joint effusion of the right knee. No acute fracture or dislocation is seen.
[2022-05-11 10:10] LABS: Estimated Average Glucose 212 mg/dL
[2022-05-11 10:50] LABS: Alanine Aminotransferase 27 U/L (0-40); Albumin Level 4.3 g/dL (3.5-5.0); Alkaline Phosphatase 60 U/L (39-117); Anion Gap 12 (12-20); Aspartate Amino Transferase 17 U/L (5-37); Bilirubin Total 1.3 mg/dL (0.0-1.0); Blood Urea Nitrogen 14 mg/dL (9-16); Calcium 9.4 mg/dL (8.4-10.2); Carbon Dioxide 28 mmol/L (22-29); Chloride 102 mmol/L (96-108); Estimated Glomerular Filt Rate > 60; Glucose Random 275 mg/dL (60-115); Potassium 4.7 mmol/L (3.3-5.1); Sodium 137 mmol/L (135-145); Total Protein 6.9 g/dL (6.5-8.0)
== END 2022-05-11 09:15 | disposition home or self-care (01) ==
LOC: HO.XRAY 09:14
PROVIDERS: PCP Internal Medicine; Visit Provider Internal Medicine
DX: Z00.00 Encounter for general adult medical examination without abnormal findings (principal); E11.65 Type 2 diabetes mellitus with hyperglycemia; E78.00 Pure hypercholesterolemia, unspecified; M17.11 Unilateral primary osteoarthritis, right knee; R80.9 Proteinuria, unspecified
CPT/HCPCS: 36415; 73560; 73565; 80053; 83036

== ENCOUNTER 2022-05-19 16:54 | Outpatient (REF) | payer MEDICAID, OTHER, SELFPAY ==
--- NOTE | ~2022-05-19 | MR_ITS ---
EXAMINATION: MR KNEE WITHOUT CONTRAST, RIGHT CLINICAL INFORMATION: Right knee pain. Evaluate for internal derangement. COMPARISON: Right knee radiographs dated 05/11/2022. TECHNIQUE: MRI of the knee without contrast was performed using routine sequences on a high-field scanner. FINDINGS: MENISCI: Medial Meniscus: Oblique inner margin radial tear of the posterior horn with extension from the posterior root to the medial aspect of the posterior horn. Degenerative intrasubstance signal within the meniscal body with a probable posteromedial meniscal flap. Attenuation and irregularity of the posterior root. Lateral Meniscus: Focal inner margin fraying of the lateral meniscal body. LIGAMENTS: Cruciate: Intact Collateral: Intact EXTENSOR MECHANISM: Intact ARTICULAR CARTILAGE/BONE: Patellofemoral Compartment: Focal full-thickness articular cartilage loss at the superior aspect of the patellar median ridge with full-thickness fissuring more inferiorly and underlying subchondral cystic change. Lateral trochlear articular cartilage signal heterogeneity and fissuring with underlying subchondral cystic change. Tiny marginal osteophytes. Medial Compartment: Articular cartilage signal heterogeneity and surface irregularity with tiny marginal osteophytes. Lateral Compartment: Intact articular cartilage. JOINT FLUID AND BURSAE: Small joint effusion and small Galeano's cyst. MR/MR knee RT wo con IMPRESSION: 1. Oblique inner margin radial tear of the medial meniscus posterior horn with extension to the medial aspect of the posterior horn. Degenerative intrasubstance signal within the meniscal body with a probable posteromedial meniscal flap. Attenuation and irregularity of the posterior root. 2. Focal inner margin fraying of the lateral meniscal body. 3. Mild patellofemoral and medial compartment osteoarthritis. Small joint effusion and small Galeano's cyst.
== END 2022-05-19 16:55 | disposition home or self-care (01) ==
LOC: HO.MRI 16:54
PROVIDERS: Visit Provider Orthopaedic Surgery
DX: M23.91 Unspecified internal derangement of right knee (principal)
CPT/HCPCS: 73721

== ENCOUNTER → 2022-06-11 09:28 | Outpatient (BNVA) | payer MEDICAID, OTHER, SELFPAY | PROVIDERS: PCP Internal Medicine; Visit Provider Orthopaedic Surgery | DX: S83.241D Other tear of medial meniscus, current injury, right knee, subsequent encounter (principal) | CPT/HCPCS: 99212 ==

== ENCOUNTER → 2022-06-23 10:24 | Outpatient (BNVA) | payer MEDICAID, OTHER, SELFPAY | PROVIDERS: PCP Internal Medicine; Visit Provider Nurse Practitioner Family | DX: Z12.11 Encounter for screening for malignant neoplasm of colon (principal); K59.04 Chronic idiopathic constipation; K64.9 Unspecified hemorrhoids | CPT/HCPCS: 99202 ==

== ENCOUNTER 2022-07-31 13:40 | Emergency (ER) | payer MEDICAID, OTHER, SELFPAY ==
--- NOTE | ~2022-07-31 | XR_ITS ---
EXAMINATION: XR KNEE, LEFT CLINICAL INFORMATION: Pain COMPARISON: None TECHNIQUE: Four views of the left knee. FINDINGS: Bone alignment is normal. No fracture or dislocation. Normal joint spaces. No joint effusion. Small osteophyte at the patellar tendon origin. XR/XR knee LT 4V IMPRESSION: Small osteophyte at the patellar tendon origin, question related to old [place]-Schlatter's disease. Otherwise unremarkable exam.
[2022-07-31 13:45] VITALS: BP 127/71; PULSE 102; RESP 20; TEMP 36.4; O2SAT 97; BMI 26.2
--- NOTE | 2022-07-31 13:50 | ED.EXTPRO ---
HPI - Extremity Problem General Chief complaint: Extremity Problem <ABY Westfall Last Filed: 07/31/22 13:52> Stated complaint: L knee pain <ABY Westfall Last Filed: 07/31/22 13:52> Time Seen by Provider: 07/31/22 15:07 <ABY Westfall - Last Filed: 07/31/22 13:52> Source: patient <ABY Craft Last Filed: 07/31/22 16:16> Mode of arrival: ambulatory <ABY Craft Last Filed: 07/31/22 16:16> History of Present Illness HPI Narrative: 57-year-old male with past medical history of diabetes presenting to the ED complaining of left knee pain x2 weeks. Denies known injury, trauma, fall. States pain worse with movement and palpation parent denies numbness, tingling, weakness, fever <ABY Craft Last Filed: 07/31/22 16:16> MD Complaint: joint pain <ABY Craft Last Filed: 07/31/22 16:16> Related Data Home medications: Previous Rx's Medication Instructions Recorded valacyclovir 1 gram tablet 1,000 mg PO TID #21 tabs 06/05/20 (Valtrex) doxycycline monohydrate 100 mg 100 mg PO BID 10 days #20 caps 06/09/20 capsule metformin 1,000 mg tablet 1,000 mg PO DAILY 30 days #30 tabs 06/09/20 clotrimazole-betamethasone 1 1 appl topical BID 4 weeks #15 02/20/21 %-0.05 % topical cream grams naproxen 500 mg tablet 500 mg PO BID PRN pain #30 tabs 11/11/21 docusate sodium 100 mg capsule 100 mg PO BEDTIME #90 caps 06/23/22 hydrocortisone 2.5 % topical cream 1 appl LA BID-QID PRN hemorrhoids 06/23/22 with perineal applicator #30 grams (Proctosol HC) polyethylene glycol 3350 17 17 g PO DAILY #510 grams 06/23/22 gram/dose oral powder (Miralax) acetaminophen 500 mg tablet 500 mg PO Q6H PRN fever or pain 07/31/22 (Tylenol Extra Strength) #14 tabs naproxen 500 mg tablet 500 mg PO BID PRN pain 10 days #20 07/31/22 tabs <ABY Westfall - Last Filed: 07/31/22 13:52> Allergies/Adverse reactions: Allergies Allergy/AdvReac Type Severity Reaction Status Date / Time No Known Allergies Allergy Verified 06/23/22 10:34 <ABY Westfall - Last Filed: 07/31/22 13:52> Review of Systems Review of Systems: Constitutional: No Fever, No Chills ENT/Mouth: No Ear Pain, No Nasal Congestion, No Sinus Pain, No Hoarseness Cardiovascular: No Chest Pain, No SOB Respiratory: No Cough, No Sputum, No Wheezing Gastrointestinal: No Nausea, No Vomiting, No Abdominal pain Genitourinary: No Dysuria, No Urinary Frequency, No Hematuria, No Urinary Incontinence/retention Musculoskeletal: +joint pain, No Myalgias, No Joint Swelling Skin: No Skin Lesions, No rash Neuro: No Weakness, No Numbness, No Paresthesias <ABY Craft - Last Filed: 07/31/22 16:16> Yes all other systems are reviewed and are negative <ABY Craft - Last Filed: 07/31/22 16:16> Constitutional: Constitutional: Reports as per HPI <ABY Craft - Last Filed: 07/31/22 16:16> [facility] Past Medical History Attestation statement: The following information was validated with the patient. <ABY Craft - Last Filed: 07/31/22 16:16> Medical History: Medical History Diabetes Tear of medial meniscus of right knee <ABY Westfall - Last Filed: 07/31/22 13:52> Social History Social History: Social History Advance Directives: No Advance Directives Information Provided: No Current occupational status: employed Current occupation: [employer] <ABY Westfall Last Filed: 07/31/22 13:52> Physical Exam Vital Signs: Vital Signs: Last Vital Signs Temp 97.6 F 07/31/22 13:45 Pulse 102 H 07/31/22 13:45 Resp 20 07/31/22 13:45 BP 127/71 07/31/22 13:45 Pulse Ox 97 07/31/22 13:45 O2 Del Method 07/31/22 13:45 BMI result Body Mass Index 26.2 <ABY Westfall - Last Filed: 07/31/22 13:52> Vital Signs: Last Vital Signs Temp 97.6 F 07/31/22 13:45 Pulse 102 H 07/31/22 13:45 Resp 20 07/31/22 13:45 BP 127/71 07/31/22 13:45 Pulse Ox 97 07/31/22 13:45 O2 Del Method 07/31/22 13:45 BMI result Body Mass Index 26.2 <ABY Craft - Last Filed: 07/31/22 16:16> Const: General: cooperative, healthy appearing and no acute distress <ABY Craft - Last Filed: 07/31/22 16:16> Orientation/consciousness: patient oriented x3 <ABY Craft - Last Filed: 07/31/22 16:16> Limitations: no limitations <ABY Craft - Last Filed: 07/31/22 16:16> HEENT: Head: Yes normal to inspection and Yes atraumatic <ABY Craft - Last Filed: 07/31/22 16:16> Ears: hearing grossly normal bilaterally <ABY Craft - Last Filed: 07/31/22 16:16> General nose exam: Normal external nose present <ABY Craft - Last Filed: 07/31/22 16:16> Face and sinus: Yes normal facial exam <ABY Craft - Last Filed: 07/31/22 16:16> Eyes: General: appearance normal, both eyes and all related structures <ABY Craft - Last Filed: 07/31/22 16:16> EOM: EOMs intact bilaterally <ABY Craft - Last Filed: 07/31/22 16:16> Neck: Neck: Yes normal visual inspection and Yes no meningeal signs <ABY Craft - Last Filed: 07/31/22 16:16> Resp: Effort & Inspection: normal respiratory effort and no respiratory distress <ABY Craft - Last Filed: 07/31/22 16:16> Cardio: Rate: regular rate <ABY Craft - Last Filed: 07/31/22 16:16> Peripheral pulses: dorsalis pedis present <ABY Craft - Last Filed: 07/31/22 16:16> Skin: Rashes: no rashes <ABY Craft - Last Filed: 07/31/22 16:16> Wounds: no wounds <ABY Craft - Last Filed: 07/31/22 16:16> Neuro: General: patient oriented x3, tone normal and no meningeal signs <ABY Craft - Last Filed: 07/31/22 16:16> Gait exam (Neuro): Normal gait present <ABY Craft - Last Filed: 07/31/22 16:16> Extrem: Other: Left knee without noted deformity. Tender to palpation below patella. ROM intact with pain. NV intact distally. No erythema/warmth or crepitus <ABY Craft - Last Filed: 07/31/22 16:16> General: Yes normal to inspection <ABY Craft - Last Filed: 07/31/22 16:16> Course Course Course Narrative: E-13:50PM - 57yo who speaks David who is presenting to the ER with complaints of atraumatic left knee pain for the past 2 weeks worse today. Reports that is at the medial aspect. He denies any falls, leg swelling, calf tenderness. He denies any other symptoms complaints or concerns at this time. Plan: left x-ray ordered at this time. Patient will be sent to the waiting room to be evaluated [facility] [place], [place]. <ABY Westfall - Last Filed: 07/31/22 13:52> RME-13:50PM - 57yo who speaks David who is presenting to the ER with complaints of atraumatic left knee pain for the past 2 weeks worse today. Reports that is at the medial aspect. He denies any falls, leg swelling, calf tenderness. He denies any other symptoms complaints or concerns at this time. Plan: left x-ray ordered at this time. Patient will be sent to the waiting room to be evaluated [facility]. XR knee LT 4V IMPRESSION: Small osteophyte at the patellar tendon origin, question related to old [place]-Schlatter's disease. Otherwise unremarkable exam. >> Shay wrap applied for comfort and stability Results discussed with patient including worrisome signs and symptoms and strict return precautions, and when to return to the emergency department. They verbalized understanding and feel safe for discharge at this time. <ABY Craft - Last Filed: 07/31/22 16:16> Medical Decision Making Medical Decision Making MDM Narrative: 57-year-old male with past medical history of diabetes presenting to the ED complaining of left knee pain x2 weeks. On exam mildly tachycardic, NAD/nontoxic-appearing, physical exam as above. Concern for osteoarthritis vs tendon or ligamental/meniscal injury. Low suspicion for fracture/dislocation or septic joint/arthritis Plan: X-rays Please refer to course for remaining clinical decision making, interpretation of labs/imaging results, and discussions with consultants and/or family members. <ABY Craft - Last Filed: 07/31/22 16:16> Differential Diagnosis Differential Diagnoses: The differential diagnosis associated with the presentation includes <ABY Craft Last Filed: 07/31/22 16:16> As above <ABY Craft - Last Filed: 07/31/22 16:16> Radiology Impression Discussion of test interpretation with radiology: I have reviewed the radiologist's reading. <ABY Craft Last Filed: 07/31/22 16:16> Prescription Management I considered prescription management with: Pain Medication <ABY Craft Last Filed: 07/31/22 16:16> Chronic Conditions Patient?s care impacted by: Diabetes <ABY Craft Last Filed: 07/31/22 16:16> Discharge Plan Discharge Clinical Impression: Chronic knee pain <ABY Westfall Last Filed: 07/31/22 13:52> Patient Disposition: Home, Self-Care <ABY Westfall Last Filed: 07/31/22 13:52> Instructions: Knee Pain (ED) <ABY Westfall Last Filed: 07/31/22 13:52> Additional Instructions: Your x-ray shows patellar tendon osteophyte which is likely related to her pain. Please follow-up with her doctor and Orthopedics Naproxen as an anti-inflammatory/pain medication, take with food. In addition take Tylenol. Wear Shay wrap for comfort and stability. Ice and elevate. <ABY Westfall - Last Filed: 07/31/22 13:52> Prescriptions: New acetaminophen [Tylenol Extra Strength] 500 mg tablet 500 mg PO Q6H PRN (Reason: fever or pain) Qty: 14 0RF naproxen 500 mg tablet 500 mg PO BID PRN (Reason: pain) 10 Days Qty: 20 0RF No Action valacyclovir [Valtrex] 1 gram tablet 1,000 mg PO TID Qty: 21 0RF doxycycline monohydrate 100 mg capsule 100 mg PO BID 10 Days Qty: 20 0RF metformin 1,000 mg tablet 1,000 mg PO DAILY 30 Days Qty: 30 1RF naproxen 500 mg tablet 500 mg PO BID PRN (Reason: pain) Qty: 30 0RF clotrimazole-betamethasone 1-0.05 % cream 1 appl topical BID 28 Days Qty: 15 0RF Rx Instructions: Apply thin coat 2 times per day polyethylene glycol 3350 [Miralax] 17 gram/dose powder 17 g PO DAILY Qty: 510 2RF docusate sodium 100 mg capsule 100 mg PO BEDTIME Qty: 90 3RF hydrocortisone [Proctosol HC] 2.5 % cream with perineal applicator 1 appl LA BID-QID PRN (Reason: hemorrhoids) Qty: 30 2RF <ABY Westfall - Last Filed: 07/31/22 13:52> Referrals: [facility] [place] [facility] [Provider Group] Liana Stacy MD [Primary Care Provider] - <ABY Westfall - Last Filed: 07/31/22 13:52>
--- NOTE | 2022-07-31 13:51 | PC.NURSE ---
patient primary language [facility]
== END 2022-07-31 16:30 | disposition home or self-care (01) ==
PROVIDERS: Emergency Provider Emergency Medicine; PCP Internal Medicine
DX: G89.29 Other chronic pain (principal); M25.562 Pain in left knee; M25.762 Osteophyte, left knee; R00.0 Tachycardia, unspecified
CPT/HCPCS: 73564; 99282; 99283

== ENCOUNTER → 2022-08-04 14:36 | Outpatient (BNVA) | payer MEDICAID, OTHER, SELFPAY | PROVIDERS: PCP Internal Medicine; Referring Provider Internal Medicine; Visit Provider Nurse Practitioner Family | DX: K59.04 Chronic idiopathic constipation (principal); K64.9 Unspecified hemorrhoids | CPT/HCPCS: 99212 ==

== ENCOUNTER → 2022-09-15 13:01 | Outpatient (BNVA) | payer MEDICAID, OTHER, SELFPAY | PROVIDERS: PCP Internal Medicine; Visit Provider Nurse Practitioner Family | DX: Z12.11 Encounter for screening for malignant neoplasm of colon (principal); K59.04 Chronic idiopathic constipation; K64.9 Unspecified hemorrhoids | CPT/HCPCS: 99212 ==

== ENCOUNTER 2022-09-29 12:22 | Outpatient (REF) | payer MEDICAID, OTHER, SELFPAY ==
[2022-09-29 14:05] LABS: Lipase 23 U/L (8-78)
[2022-09-29 14:11] LABS: Alanine Aminotransferase 24 U/L (0-40); Albumin Level 4.2 g/dL (3.5-5.0); Alkaline Phosphatase 57 U/L (39-117); Anion Gap 10 (12-20); Aspartate Amino Transferase 17 U/L (5-37); Bilirubin Total 2.1 mg/dL (0.0-1.0); Blood Urea Nitrogen 14 mg/dL (9-16); Calcium 9.2 mg/dL (8.4-10.2); Carbon Dioxide 27 mmol/L (22-29); Chloride 104 mmol/L (96-108); Estimated Glomerular Filt Rate > 60; Glucose Random 249 mg/dL (60-115); Potassium 4.4 mmol/L (3.3-5.1); Sodium 137 mmol/L (135-145); Total Protein 6.6 g/dL (6.5-8.0)
[2022-09-29 15:29] LABS: Estimated Average Glucose 226 mg/dL; Hemoglobin A1c % 9.5 %
[2022-10-01 14:54] LABS: Transglutaminase Ab IgG <1.0 U/mL; Transglutaminase IgA <1.0 U/mL
== END 2022-09-29 12:23 | disposition home or self-care (01) ==
LOC: HO.LAB 12:22
PROVIDERS: Nurse Practitioner Family; PCP Internal Medicine; Visit Provider Internal Medicine
DX: E11.65 Type 2 diabetes mellitus with hyperglycemia (principal); R10.9 Unspecified abdominal pain; E78.00 Pure hypercholesterolemia, unspecified
CPT/HCPCS: 36415; 80053; 83036; 83690; 86364

== ENCOUNTER 2022-10-20 11:27 | Outpatient (REF) | payer MEDICAID, OTHER, SELFPAY ==
[2022-10-30 19:59] LABS: Pancreatic Elastase-1 184 mcg/g
== END 2022-10-20 11:28 | disposition home or self-care (01) ==
LOC: HO.LNP 11:27
PROVIDERS: Visit Provider Nurse Practitioner Family
DX: R10.9 Unspecified abdominal pain (principal)
CPT/HCPCS: 82656

== ENCOUNTER 2022-12-22 11:28 | Outpatient (REF) | payer MEDICAID, OTHER, SELFPAY ==
[2022-12-22 12:31] LABS: Estimated Average Glucose 246 mg/dL; Hemoglobin A1c % 10.2 %
[2022-12-22 13:05] LABS: Alanine Aminotransferase 22 U/L (0-40); Albumin Level 4.2 g/dL (3.5-5.0); Alkaline Phosphatase 59 U/L (39-117); Anion Gap 13 (12-20); Aspartate Amino Transferase 16 U/L (5-37); Bilirubin Total 2.1 mg/dL (0.0-1.0); Blood Urea Nitrogen 14 mg/dL (9-16); Calcium 9.5 mg/dL (8.4-10.2); Carbon Dioxide 26 mmol/L (22-29); Chloride 102 mmol/L (96-108); Estimated Glomerular Filt Rate > 60; Glucose Random 331 mg/dL (60-115); Potassium 3.7 mmol/L (3.3-5.1); Sodium 137 mmol/L (135-145); Total Protein 6.8 g/dL (6.5-8.0)
[2022-12-22 13:22] LABS: Thyroid Stimulating Hormone 1.39 uIU/mL (0.32-4.0)
[2022-12-22 13:30] LABS: Folate 15.1 ng/mL (> or = 4.0); Vitamin B12 401 pg/mL (200-900)
== END 2022-12-22 11:29 | disposition home or self-care (01) ==
LOC: HO.LAB 11:28
PROVIDERS: PCP Internal Medicine; Visit Provider Internal Medicine
DX: E11.65 Type 2 diabetes mellitus with hyperglycemia (principal); I10 Essential (primary) hypertension; R80.9 Proteinuria, unspecified
CPT/HCPCS: 36415; 80053; 82607; 82746; 83036; 84443

== ENCOUNTER 2022-12-22 12:06 | Emergency (ER) | payer MEDICAID, OTHER, SELFPAY ==
--- NOTE | ~2022-12-22 | US_ITS ---
EXAMINATION: US VENOUS ULTRASOUND WITH DOPPLER LOWER EXTREMITY, LEFT CLINICAL INFORMATION: Left calf pain. COMPARISON: None available. TECHNIQUE: Ultrasound of the deep veins is performed from the hip to the calf with compression sonography and color and pulse Doppler assessment. Spectral analysis with color-flow imaging is performed. FINDINGS: There is normal venous compression and respiratory variation and augmented flow. The visualized common femoral vein, superficial femoral vein, femoral vein, popliteal vein, and the trifurcation region shows no evidence of deep venous thrombosis. No Galeano's cyst is seen. Incidentally visualized, normal-appearing left inguinal lymph node. US/US venous duplex LE LT IMPRESSION: No evidence of left lower extremity deep venous thrombosis.
--- NOTE | 2022-12-22 12:08 | ED.GENADULT ---
HPI - General Adult General Chief complaint: Extremity Injury, Lower Stated complaint: L Leg Pain Time Seen by Provider: 12/22/22 12:21 Source: patient Mode of arrival: ambulatory Limitations: no limitations History of Present Illness HPI narrative: 57 yo male with history of DM (poorly compliant w/ insulin), ETOH use, chronic right knee pain who presents to the ER for evaluation of nontraumtic left lower extremity pain for the last 1 month. He states the pain starts in his left buttock and radiates down the entire leg to his left calf. Pain is 7/10 that worsens with movement. He endorses a history of DVT in his left thigh. He denies trauma. No fever, chills, numbness, tingling, chest pain, or SOB. MD complaint: left lower extremity pain Onset (ago): month(s) (1) Location: buttocks (left) Radiation: extremity (left) Severity: moderate Severity scale (1-10): 7 Quality: aching Pain Consistency: constant Relieving factors: rest Exacerbating factors: movement Associated symptoms: denies other symptoms Treatments prior to arrival: none Related Data Previous Rx's Medication Instructions Recorded doxycycline monohydrate 100 mg 100 mg PO BID 10 days #20 caps 06/09/20 capsule metformin 1,000 mg tablet 1,000 mg PO DAILY 30 days #30 tabs 06/09/20 clotrimazole-betamethasone 1 1 appl topical BID 4 weeks #15 02/20/21 %-0.05 % topical cream grams docusate sodium 100 mg capsule 100 mg PO BEDTIME #90 caps 06/23/22 hydrocortisone 2.5 % topical cream 1 appl MI BID-QID PRN hemorrhoids 06/23/22 with perineal applicator #30 grams (Proctosol HC) polyethylene glycol 3350 17 17 g PO DAILY #510 grams 06/23/22 gram/dose oral powder (Miralax) acetaminophen 500 mg tablet 500 mg PO Q6H PRN fever or pain 07/31/22 (Tylenol Extra Strength) #14 tabs naproxen 500 mg tablet 500 mg PO BID PRN pain 10 days #20 07/31/22 tabs polyethylene glycol 3350 17 238 g PO ONCE #238 grams 08/04/22 gram/dose oral powder (Miralax) sennosides 8.6 mg tablet (Natural 17.2 mg PO BEDTIME constipation 04/04/23 Senna Laxative) #60 tabs bisacodyl 5 mg tablet,delayed 10 mg PO ONCE 1 day #2 tabs 09/16/22 release (Dulcolax (bisacodyl)) cyclobenzaprine 10 mg tablet 10 mg PO TID PRN muscle spasm #14 12/22/22 tabs insulin glargine 100 unit/mL (3 30 unit (0.3 mL) subcut QPM #15 mL 12/22/22 mL) subcutaneous pen (Lantus Solostar U-100 Insulin) naproxen 500 mg tablet 500 mg PO BID PRN pain #20 tabs 12/22/22 Allergies Allergy/AdvReac Type Severity Reaction Status Date / Time No Known Allergies Allergy Verified 11/04/22 14:54 Review of Systems Review of Systems: Yes all other systems are reviewed and are negative [facility] Past Medical History Medical History Diabetes Tear of medial meniscus of right knee Social History Social History Advance Directives: No Advance Directives Information Provided: Yes Current occupational status: employed Current occupation: [employer] Physical Exam ED Vital Signs: Vital Signs - 24 hr 12/22/22 12:09 Temperature 98 F Pulse Rate 87 Respiratory Rate 18 Blood Pressure 123/72 Pulse Oximetry 98 Oxygen Delivery Method Room Air BMI result Body Mass Index 29.6 Const General: no acute distress and alert Orientation/consciousness: patient oriented x3 HENMT Head: Yes normocephalic and Yes atraumatic Eyes EOM: EOMs intact bilaterally Neck Neck: Yes full ROM and Yes supple Skin General skin exam: no rashes or lesions noted, no ecchymosis and no erythema Neuro General: patient oriented x3 Gait exam (Neuro): Normal gait present Extrem Other: Tenderness to palpation over the left gluteal muscle, hamstring muscle General: Yes calf tenderness and No edema Left lower extremity: normal to inspection and full ROM; no edema Course Course Course Narrative: This is an RME: Additional HPI, ROS, PE not included below will be deferred to primary provider. Patient is a 57 year old male with a PMH of DM presents with left calf pain for 3 weeks. Patient reports pain is worse when squeezing his half. Patient is ambulating. Patient denies recent travel. Patient denies fever, chills, night sweats, nausea, vomiting, numbness, tingling, chest pain, shortness of breath. Plan: labs, US Medications Administered Discontinued Medications Generic Name Dose Route Start Last Admin Trade Name Sergey PRN Reason Stop Dose Admin Acetaminophen 975 mg 12/22/22 12:45 12/22/22 12:50 Acetaminophen 325 Mg Tablet PO 12/22/22 12:46 975 mg ONCE ONE Administration Ibuprofen 600 mg 12/22/22 12:45 12/22/22 12:50 Ibuprofen 600 Mg Tablet PO 12/22/22 12:46 600 mg ONCE ONE Administration Insulin Human Lispro 15 unit 12/22/22 12:49 12/22/22 12:54 Insulin Lispro 100 Unit/Ml 3 Ml Vial SUBCUT 12/22/22 12:50 15 unit ONCE ONE Administration Medical Decision Making Medical Decision Making [facility] Narrative: 57 yo male with history of DM (poorly compliant w/ insulin), ETOH use, chronic right knee pain who presents to the ER for evaluation of nontraumtic left lower extremity pain for the last 1 month. +SI joint tenderness on exam. No LE edema, doubt DVT. Given hx DVT in the past LE doppler was done and was negative for DVT. Labs unremarkable aside from hyperglycemia due to medication noncomplicant. No anion gap. Improved with insulin. Will plan to start anti-inflammatory medication, muscle relaxer and have him follow up with his PCP. Ambulatory. Stable for d/c. Patient counseled and agrees w/ plan Differential Diagnosis Differential Diagnoses: The differential diagnosis associated with the presentation includes DVT, sacroilitis, sciatica, lumbar radiculopathy, muscle strain Lab Data [facility] Lab Attestation statement: I reviewed the patient's lab results. hyperglycemia without anion gap 12/22/22 12:22 12/22/22 12:22 Labs: Lab Results 12/22/22 12/22/22 12/22/22 Range/Units 12:22 12:22 12:22 WBC 6.7 (4.8-10.8) X10*3/uL RBC 5.19 (4.60-5.80) X10*6/uL Hgb 14.9 (14.0-18.0) g/dl Hct 44.0 (42.0-52.0) % MCV 84.8 (80.0-98.0) fL MCH 28.7 (27.0-33.0) pg MCHC 33.9 (31.0-36.0) g/dl RDW 12.4 (11.0-16.0) % Plt Count 240 (160-400) X10*3/uL MPV 10.3 (9.4-12.4) fL Immature Gran % (Auto) 0.1 (0.0-0.4) % Neut % (Auto) 60.1 (45-73) % Lymph % (Auto) 29.9 (20-40) % Billings % (Auto) 7.5 (2-11) % Eos % (Auto) 1.8 (0-4) % Baso % (Auto) 0.6 (0-2) % Lymph # (Auto) 2.0 (1.2-4.9) X10*3/uL Bill[place] # (Auto) 0.5 (0.1-1.2) X10*3/uL Eos # (Auto) 0.1 (0.0-0.4) X10*3/uL Baso # (Auto) 0.0 (0.0-0.2) X10*3/uL Abs Immat Gran (auto) 0.01 (0.00-0.03) X10*3/uL Absolute Neuts (auto) 4.0 (2.0-8.3) x10*3/uL Absolute Nucleated RBC 0.000 (0.0-0.012) X10*3/uL Nucleated RBC % (auto) 0.0 (0.0-0.2) /100WBC PT 11.1 (10.0-13.1) SEC INR 1.0 (0.9-1.1) Sodium 136 (135-145) mmol/L Potassium 4.3 (3.3-5.1) mmol/L Chloride 100 (96-108) mmol/L Carbon Dioxide 25 (22-29) mmol/L Anion Gap 15 (12-20) BUN 14 (9-16) mg/dL Creatinine 0.91 (0.5-1.4) mg/dL Estim Creat Clear Calc 77.7 Estimated GFR > 60 POC Glucose (60-115) mg/dL Random Glucose 423 H* (60-115) mg/dL Calcium 9.8 (8.4-10.2) mg/dL Magnesium 1.9 (1.6-2.6) mg/dL Total Bilirubin 2.3 H (0.0-1.0) mg/dL AST 17 (5-37) U/L ALT 23 (0-40) U/L Alkaline Phosphatase 61 (39-117) U/L Total Protein 7.0 (6.5-8.0) g/dL Albumin 4.3 (3.5-5.0) g/dL 12/22/22 Range/Units 14:43 WBC (4.8-10.8) X10*3/uL RBC (4.60-5.80) X10*6/uL Hgb (14.0-18.0) g/dl Hct (42.0-52.0) % MCV (80.0-98.0) fL MCH (27.0-33.0) pg MCHC (31.0-36.0) g/dl RDW (11.0-16.0) % Plt Count (160-400) X10*3/uL MPV (9.4-12.4) fL Immature Gran % (Auto) (0.0-0.4) % Neut % (Auto) (45-73) % Lymph % (Auto) (20-40) % Bill[place] % (Auto) (2-11) % Eos % (Auto) (0-4) % Baso % (Auto) (0-2) % Lymph # (Auto) (1.2-4.9) X10*3/uL Billings # (Auto) (0.1-1.2) X10*3/uL Eos # (Auto) (0.0-0.4) X10*3/uL Baso # (Auto) (0.0-0.2) X10*3/uL Abs Immat Gran (auto) (0.00-0.03) X10*3/uL Absolute Neuts (auto) (2.0-8.3) x10*3/uL Absolute Nucleated RBC (0.0-0.012) X10*3/uL Nucleated RBC % (auto) (0.0-0.2) /100WBC PT (10.0-13.1) SEC INR (0.9-1.1) Sodium (135-145) mmol/L Potassium (3.3-5.1) mmol/L Chloride (96-108) mmol/L Carbon Dioxide (22-29) mmol/L Anion Gap (12-20) BUN (9-16) mg/dL Creatinine (0.5-1.4) mg/dL Estim Creat Clear Calc Estimated GFR POC Glucose 303 H (60-115) mg/dL Random Glucose (60-115) mg/dL Calcium (8.4-10.2) mg/dL Magnesium (1.6-2.6) mg/dL Total Bilirubin (0.0-1.0) mg/dL AST (5-37) U/L ALT (0-40) U/L Alkaline Phosphatase (39-117) U/L Total Protein (6.5-8.0) g/dL Albumin (3.5-5.0) g/dL Independent Interpretation I performed an independent interpretation of an: Ultrasound Interpretation: US reviewed - no DVT Radiology Impression Discussion of test interpretation with radiology: I have reviewed the radiologist's reading. Radiologist Impression: US/US venous duplex LE LT IMPRESSION: ? No evidence of left lower extremity deep venous thrombosis. External Record Review External record reviewed: Outpatient record, Prior outpatient labs and Prior outpatient radiology Prescription Management I considered prescription management with: Pain Medication Chronic Conditions Patient?s care impacted by: Diabetes Critical Care Time Critical Care Time Critical Care Time: No Discharge Plan Discharge Clinical Impression: Sacroiliitis Patient Disposition: Home, Self-Care Instructions: Sacroiliitis (ED) Additional Instructions: Your ultrasound today was normal. Your blood was was unremarkable aside from high blood sugar. It is important to take your insulin every day, even if you are drinking beer. You pain is most likely due to inflammation and irritation of the SI joint. No bending, lifting or twisting. Use ice several times per day for 20 minutes at a time for the next 48 hours and then change to heat. Take medications as prescribed to help with pain and discomfort. Follow up with your Primary Care Doctor this week. If your pain worsens, if you develop new numbness, tingling, weakness, loss of function or incontinence call 911 or come back to the ER right away for evaluation. Prescriptions: New cyclobenzaprine 10 mg tablet 10 mg PO TID PRN (Reason: muscle spasm) Qty: 14 0RF naproxen 500 mg tablet 500 mg PO BID PRN (Reason: pain) Qty: 20 0RF insulin glargine [Lantus Solostar U-100 Insulin] 100 unit/mL (3 mL) insulin pen 30 unit subcut QPM Qty: 15 0RF No Action bisacodyl [Dulcolax (bisacodyl)] 5 mg tablet,delayed release (DR/EC) 10 mg PO ONCE 1 Days Qty: 2 0RF Rx Instructions: take 2 tabs at noon the day before your colonoscopy doxycycline monohydrate 100 mg capsule 100 mg PO BID 10 Days Qty: 20 0RF metformin 1,000 mg tablet 1,000 mg PO DAILY 30 Days Qty: 30 1RF acetaminophen [Tylenol Extra Strength] 500 mg tablet 500 mg PO Q6H PRN (Reason: fever or pain) Qty: 14 0RF naproxen 500 mg tablet 500 mg PO BID PRN (Reason: pain) 10 Days Qty: 20 0RF clotrimazole-betamethasone 1-0.05 % cream 1 appl topical BID 28 Days Qty: 15 0RF Rx Instructions: Apply thin coat 2 times per day polyethylene glycol 3350 [Miralax] 17 gram/dose powder 17 g PO DAILY Qty: 510 2RF docusate sodium 100 mg capsule 100 mg PO BEDTIME Qty: 90 3RF hydrocortisone [Proctosol HC] 2.5 % cream with perineal applicator 1 appl MI BID-QID PRN (Reason: hemorrhoids) Qty: 30 2RF polyethylene glycol 3350 [Miralax] 17 gram/dose powder 238 g PO ONCE Qty: 238 0RF Rx Instructions: As directed by gastroenterology department at [facility] sennosides [Natural Senna Laxative] 8.6 mg tablet 17.2 mg PO BEDTIME Qty: 60 3RF Referrals: Liana Stacy MD [Primary Care Provider] - Interventions: ED Discharge Assessment Last Done: 12/22/22 15:03 Discharge Date/Time: 12/22/22 15:03
[2022-12-22 12:09] VITALS: BP 123/72; PULSE 87; RESP 18; TEMP 36.6; O2SAT 98; BMI 29.6
[2022-12-22 12:27] LABS: MANUAL DIFF FLAG NO
[2022-12-22 12:32] LABS: Basophils Percent Auto 0.6 % (0-2); Eosinophils Absolute Auto 0.1 X10*3/uL (0.0-0.4); Eosinophils Percent Auto 1.8 % (0-4); Hemoglobin 14.9 g/dl (14.0-18.0); Imm Gran Abs Auto 0.01 X10*3/uL (0.00-0.03); Imm Gran Pct Auto 0.1 % (0.0-0.4); Lymphocytes Percent Auto 29.9 % (20-40); Mean Corpuscular HGB Conc 33.9 g/dl (31.0-36.0); Mean Corpuscular Hemoglobin 28.7 pg (27.0-33.0); Mean Corpuscular Volume 84.8 fL (80.0-98.0); Mean Platelet Volume 10.3 fL (9.4-12.4); Monocytes Absolute Auto 0.5 X10*3/uL (0.1-1.2); Monocytes Percent Auto 7.5 % (2-11); Neutrophils Percent Auto 60.1 % (45-73); Platelet Count 240 X10*3/uL (160-400); Red Blood Count 5.19 X10*6/uL (4.60-5.80); Red Cell Distribution Width 12.4 % (11.0-16.0); White Blood Count 6.7 X10*3/uL (4.8-10.8)
[2022-12-22 12:39] LABS: Prothrombin Time 11.1 SEC (10.0-13.1)
[2022-12-22 12:47] LABS: Alanine Aminotransferase 23 U/L (0-40); Albumin Level 4.3 g/dL (3.5-5.0); Alkaline Phosphatase 61 U/L (39-117); Anion Gap 15 (12-20); Aspartate Amino Transferase 17 U/L (5-37); Bilirubin Total 2.3 mg/dL (0.0-1.0); Blood Urea Nitrogen 14 mg/dL (9-16); Calcium 9.8 mg/dL (8.4-10.2); Carbon Dioxide 25 mmol/L (22-29); Chloride 100 mmol/L (96-108); Creatinine Clr Calc Pharmacy 77.7; Estimated Glomerular Filt Rate > 60; Magnesium 1.9 mg/dL (1.6-2.6); Potassium 4.3 mmol/L (3.3-5.1); Sodium 136 mmol/L (135-145)
[2022-12-22 12:48] LABS: Glucose Random 423 mg/dL (60-115)
[2022-12-22] MEDS: Acetaminophen 325 MG TABLET 975 MG PO (12:50)
[2022-12-22] MEDS: Ibuprofen 600 MG TABLET PO (12:50)
[2022-12-22] MEDS: Insulin Lispro 100 UNIT/ML 3 ML VIAL 15 UNIT SUBCUT (12:54)
--- NOTE | 2022-12-22 12:55 | PC.NURSE ---
medicated per the MAR for hyperglycemia and pain, awaiting ultrasound at this time
[2022-12-22 14:46] LABS: Glucose, Whole Blood 303 mg/dL (60-115)
[2022-12-22 23:24] LABS: Glucose, Whole Blood 419 mg/dL (60-115)
== END 2022-12-22 15:03 | disposition home or self-care (01) ==
PROVIDERS: Physician Assistant; Emergency Provider Emergency Medicine Emergency Medical Services; PCP Internal Medicine
DX: M46.1 Sacroiliitis, not elsewhere classified (principal); E11.65 Type 2 diabetes mellitus with hyperglycemia; M79.605 Pain in left leg; Z91.148 Patient's other noncompliance with medication regimen for other reason; Z86.718 Personal history of other venous thrombosis and embolism; Z79.4 Long term (current) use of insulin
CPT/HCPCS: 36415; 80053; 82947; 83735; 85025; 85610; 93971; 99283; 99284

== ENCOUNTER 2023-05-25 12:03 | Outpatient (REF) | payer MEDICAID, OTHER, SELFPAY ==
[2023-05-25 12:26] LABS: MANUAL DIFF FLAG NO
[2023-05-25 12:41] LABS: Basophils Absolute Auto 0.1 X10*3/uL (0.0-0.2); Basophils Percent Auto 0.8 % (0-2); Eosinophils Absolute Auto 0.4 X10*3/uL (0.0-0.4); Eosinophils Percent Auto 5.7 % (0-4); Hematocrit 43.6 % (42.0-52.0); Hemoglobin 14.8 g/dl (14.0-18.0); Imm Gran Abs Auto 0.02 X10*3/uL (0.00-0.03); Imm Gran Pct Auto 0.3 % (0.0-0.4); Lymphocytes Absolute Auto 1.9 X10*3/uL (1.2-4.9); Lymphocytes Percent Auto 29.7 % (20-40); Mean Corpuscular HGB Conc 33.9 g/dl (31.0-36.0); Mean Corpuscular Hemoglobin 29.2 pg (27.0-33.0); Mean Corpuscular Volume 86.2 fL (80.0-98.0); Mean Platelet Volume 9.9 fL (9.4-12.4); Monocytes Absolute Auto 0.5 X10*3/uL (0.1-1.2); Monocytes Percent Auto 7.2 % (2-11); Neutrophils Absolute Auto 3.7 x10*3/uL (2.0-8.3); Neutrophils Percent Auto 56.3 % (45-73); Platelet Count 251 X10*3/uL (160-400); Red Blood Count 5.06 X10*6/uL (4.60-5.80); Red Cell Distribution Width 12.8 % (11.0-16.0); White Blood Count 6.5 X10*3/uL (4.8-10.8)
[2023-05-25 12:49] LABS: Estimated Average Glucose 203 mg/dL; Hemoglobin A1c % 8.7 % (<6.0)
[2023-05-25 13:15] LABS: Alanine Aminotransferase 23 U/L (0-40); Albumin Level 4.3 g/dL (3.5-5.0); Alkaline Phosphatase 54 U/L (39-117); Anion Gap 10 (12-20); Aspartate Amino Transferase 17 U/L (5-37); Bilirubin Total 1.4 mg/dL (0.0-1.0); Blood Urea Nitrogen 17 mg/dL (9-16); Calcium 9.5 mg/dL (8.4-10.2); Carbon Dioxide 29 mmol/L (22-29); Chloride 105 mmol/L (96-108); Cholesterol 153 mg/dL (<200); Estimated Glomerular Filt Rate > 60; Glucose Random 218 mg/dL (60-115); HDL Cholesterol 65 mg/dL (>40); LDL Cholesterol Calculated 79 mg/dL (<100); Potassium 4.7 mmol/L (3.3-5.1); Sodium 139 mmol/L (135-145); Total Protein 7.2 g/dL (6.5-8.0); Triglycerides 48 mg/dL (<150)
[2023-05-25 13:26] LABS: Prostate Specific Antigen 1.72 ng/mL (<0.05-4.0)
[2023-05-25 13:34] LABS: Thyroid Stimulating Hormone 1.47 uIU/mL (0.32-4.0)
[2023-05-25 14:01] LABS: Creatinine Urine 145.96 mg/dL; Microalbum/Creatinine Ratio Ur 5.4 ug/mg cr (<30)
== END 2023-05-25 12:04 | disposition home or self-care (01) ==
LOC: HO.LAB 12:03
PROVIDERS: PCP Internal Medicine; Visit Provider Internal Medicine
DX: E11.65 Type 2 diabetes mellitus with hyperglycemia (principal); I10 Essential (primary) hypertension; R80.9 Proteinuria, unspecified; Z12.5 Encounter for screening for malignant neoplasm of prostate
CPT/HCPCS: 36415; 80053; 80061; 82043; 82570; 83036; 84153; 84443; 85025

== ENCOUNTER 2023-08-31 10:25 | Outpatient (REF) | payer MEDICAID, OTHER, SELFPAY ==
[2023-08-31 12:50] LABS: Estimated Average Glucose 206 mg/dL; Hemoglobin A1c % 8.8 % (<6.0)
[2023-08-31 13:30] LABS: Alanine Aminotransferase 25 U/L (0-40); Alkaline Phosphatase 52 U/L (39-117); Anion Gap 12 (12-20); Aspartate Amino Transferase 17 U/L (5-37); Bilirubin Total 1.8 mg/dL (0.0-1.0); Blood Urea Nitrogen 19 mg/dL (9-16); Calcium 8.9 mg/dL (8.4-10.2); Carbon Dioxide 26 mmol/L (22-29); Chloride 104 mmol/L (96-108); Estimated Glomerular Filt Rate > 60; Glucose Random 174 mg/dL (60-115); Potassium 4.3 mmol/L (3.3-5.1); Sodium 138 mmol/L (135-145); Total Protein 6.8 g/dL (6.5-8.0)
== END 2023-08-31 10:26 | disposition home or self-care (01) ==
LOC: HO.LAB 10:25
PROVIDERS: PCP Internal Medicine; Visit Provider Internal Medicine
DX: E11.65 Type 2 diabetes mellitus with hyperglycemia (principal); E78.00 Pure hypercholesterolemia, unspecified; R80.9 Proteinuria, unspecified; I10 Essential (primary) hypertension
CPT/HCPCS: 36415; 80053; 83036

== ENCOUNTER 2023-08-31 11:01 | Emergency (ER) | payer MEDICAID, OTHER, SELFPAY ==
[2023-08-31 11:25] VITALS: BP 113/69; PULSE 75; RESP 20; TEMP 36; O2SAT 99; BMI 32.3
--- NOTE | 2023-08-31 11:26 | ED.MALEGU ---
HPI - Male Genitourinary General Chief complaint: General Medical Stated complaint: Infection in Penis Related Data Previous Rx's Medication Instructions Recorded doxycycline monohydrate 100 mg 100 mg PO BID 10 days #20 caps 06/09/20 capsule metformin 1,000 mg tablet 1,000 mg PO DAILY 30 days #30 tabs 06/09/20 clotrimazole-betamethasone 1 1 appl topical BID 4 weeks #15 02/20/21 %-0.05 % topical cream grams docusate sodium 100 mg capsule 100 mg PO BEDTIME #90 caps 06/23/22 hydrocortisone 2.5 % topical cream 1 appl [place] BID-QID PRN hemorrhoids 06/23/22 with perineal applicator #30 grams (Proctosol HC) polyethylene glycol 3350 17 17 g PO DAILY #510 grams 06/23/22 gram/dose oral powder (Miralax) acetaminophen 500 mg tablet 500 mg PO Q6H PRN fever or pain 07/31/22 (Tylenol Extra Strength) #14 tabs naproxen 500 mg tablet 500 mg PO BID PRN pain 10 days #20 07/31/22 tabs polyethylene glycol 3350 17 238 g PO ONCE #238 grams 08/04/22 gram/dose oral powder (Miralax) sennosides 8.6 mg tablet (Natural 17.2 mg (2 x 8.6 mg) PO BEDTIME 09/15/22 Senna Laxative) constipation #60 tabs bisacodyl 5 mg tablet,delayed 10 mg (2 x 5 mg) PO ONCE 1 day #2 09/16/22 release (Dulcolax (bisacodyl)) tabs cyclobenzaprine 10 mg tablet 10 mg PO TID PRN muscle spasm #14 12/22/22 tabs insulin glargine 100 unit/mL (3 30 unit (0.3 mL) subcut QPM #15 mL 12/22/22 mL) subcutaneous pen (Lantus Solostar U-100 Insulin) naproxen 500 mg tablet 500 mg PO BID PRN pain #20 tabs 12/22/22 Allergies Allergy/AdvReac Type Severity Reaction Status Date / Time No Known Allergies Allergy Verified 11/04/22 14:54 [facility] Past Medical History Medical History Diabetes Tear of medial meniscus of right knee Social History Social History Advance Directives: No Advance Directives Information Provided: No Current occupational status: employed Current occupation: [employer] Physical Exam Vital Signs: Vital Signs: Last Vital Signs Temp 98.9 F 08/31/23 17:06 Pulse 83 08/31/23 17:06 Resp 18 08/31/23 17:06 BP 111/72 08/31/23 17:06 Pulse Ox 98 08/31/23 17:06 O2 Del Method Room Air 08/31/23 17:06 BMI result Body Mass Index 32.3 Course Course Course Narrative: This is an RME: Additional HPI, ROS, PE not included below will be deferred to primary provider. This is a 58-year-old male, David speaking, with a past medical history of diabetes, who presents emergency department with complaints of dysuria and penile redness/swelling x 10-15 days. Denies hematuria. Unable to visualize region due to limited privacy in triage - will defer exam to primary provider. No concerns for sexually transmitted infection at this time - he is not sexually active. Plan: labs, UA, further er eval needed Reevaluation(s) Reevaluation #1: Patient left without completing treatment. Medical Decision Making Lab Data 08/31/23 12:47 08/31/23 12:47 Labs: Lab Results 08/31/23 Range/Units 12:47 WBC 7.3 (4.8-10.8) X10*3/uL RBC 5.25 (4.60-5.80) X10*6/uL Hgb 15.1 (14.0-18.0) g/dl Hct 44.4 (42.0-52.0) % MCV 84.6 (80.0-98.0) fL MCH 28.8 (27.0-33.0) pg MCHC 34.0 (31.0-36.0) g/dl RDW 12.2 (11.0-16.0) % Plt Count 245 (160-400) X10*3/uL MPV 9.8 (9.4-12.4) fL Immature Gran % (Auto) 0.1 (0.0-0.4) % Neut % (Auto) 57.3 (45-73) % Lymph % (Auto) 30.6 (20-40) % [place] % (Auto) 7.4 (2-11) % Eos % (Auto) 3.9 (0-4) % Baso % (Auto) 0.7 (0-2) % Lymph # (Auto) 2.2 (1.2-4.9) X10*3/uL [place] # (Auto) 0.5 (0.1-1.2) X10*3/uL Eos # (Auto) 0.3 (0.0-0.4) X10*3/uL Baso # (Auto) 0.1 (0.0-0.2) X10*3/uL Abs Immat Gran (auto) 0.01 (0.00-0.03) X10*3/uL Absolute Neuts (auto) 4.2 (2.0-8.3) x10*3/uL Absolute Nucleated RBC 0.000 (0.0-0.012) X10*3/uL Nucleated RBC % (auto) 0.0 (0.0-0.2) /100WBC Sodium 137 (135-145) mmol/L Potassium 4.4 (3.3-5.1) mmol/L Chloride 105 (96-108) mmol/L Carbon Dioxide 27 (22-29) mmol/L Anion Gap 9 L (12-20) BUN 17 H (9-16) mg/dL Creatinine 0.87 (0.5-1.4) mg/dL Estim Creat Clear Calc 96.4 Estimated GFR > 60 Random Glucose 205 H (60-115) mg/dL Calcium 9.2 (8.4-10.2) mg/dL Total Bilirubin 1.9 H (0.0-1.0) mg/dL Direct Bilirubin 0.6 H (0.0-0.5) mg/dL AST 18 (5-37) U/L ALT 26 (0-40) U/L Alkaline Phosphatase 56 (39-117) U/L Total Protein 7.1 (6.5-8.0) g/dL Albumin 4.1 (3.5-5.0) g/dL Urine Color Yellow Urine Appearance Clear Urine pH 6.5 (5.0-9.0) Ur Specific [place] >= 1.030 H (1.005-1.025) Urine Protein Negative (Neg-Trace) mg/dL Urine Glucose (UA) >=1000 H (Negative) mg/dL Urine Ketones Negative (Negative) mg/dL Urine Blood Negative (Negative) Urine Nitrite Negative (Negative) Ur Leukocyte Esterase Negative (Negative) Urine RBC 0-2 (0-2) /HPF Urine WBC 0-5 (0-5) /HPF Ur Squamous Epith Cells 0-2 (0-2) /HPF Urine Bacteria None Seen (None Seen) Hyaline Casts 0-2 (0-2) /LPF Discharge Plan Discharge Clinical Impression: Dysuria Patient Disposition: Left W/O Completing Treatment Prescriptions: No Action bisacodyl [Dulcolax (bisacodyl)] 5 mg tablet,delayed release (DR/EC) 10 mg PO ONCE 1 Days Qty: 2 0RF Rx Instructions: take 2 tabs at noon the day before your colonoscopy doxycycline monohydrate 100 mg capsule 100 mg PO BID 10 Days Qty: 20 0RF metformin 1,000 mg tablet 1,000 mg PO DAILY 30 Days Qty: 30 1RF acetaminophen [Tylenol Extra Strength] 500 mg tablet 500 mg PO Q6H PRN (Reason: fever or pain) Qty: 14 0RF naproxen 500 mg tablet 500 mg PO BID PRN (Reason: pain) 10 Days Qty: 20 0RF cyclobenzaprine 10 mg tablet 10 mg PO TID PRN (Reason: muscle spasm) Qty: 14 0RF naproxen 500 mg tablet 500 mg PO BID PRN (Reason: pain) Qty: 20 0RF insulin glargine [Lantus Solostar U-100 Insulin] 100 unit/mL (3 mL) insulin pen 30 unit subcut QPM Qty: 15 0RF clotrimazole-betamethasone 1-0.05 % cream 1 appl topical BID 28 Days Qty: 15 0RF Rx Instructions: Apply thin coat 2 times per day polyethylene glycol 3350 [Miralax] 17 gram/dose powder 17 g PO DAILY Qty: 510 2RF docusate sodium 100 mg capsule 100 mg PO BEDTIME Qty: 90 3RF hydrocortisone [Proctosol HC] 2.5 % cream with perineal applicator 1 appl [place] BID-QID PRN (Reason: hemorrhoids) Qty: 30 2RF polyethylene glycol 3350 [Miralax] 17 gram/dose powder 238 g PO ONCE Qty: 238 0RF Rx Instructions: As directed by gastroenterology department at [facility] sennosides [Natural Senna Laxative] 8.6 mg tablet 17.2 mg PO BEDTIME Qty: 60 3RF Discharge Date/Time: 08/31/23 18:56
[2023-08-31 13:01] LABS: MANUAL DIFF FLAG NO
[2023-08-31 13:04] LABS: Appearance Urine Clear; Color Urine Yellow; Glucose Urine UA >=1000 mg/dL (Negative); Leukocyte Esterase Urine Negative (Negative); Nitrite Urine Negative (Negative); PH 6.5 (5.0-9.0); Specific Gravity - Urine >= 1.030 (1.005-1.025); UMIC TRIGGER UACC YES; Urine Blood Negative (Negative); Urine Ketones Negative (Negative); Urine Protein Negative (Neg-Trace)
[2023-08-31 13:05] LABS: Basophils Absolute Auto 0.1 X10*3/uL (0.0-0.2); Basophils Percent Auto 0.7 % (0-2); Eosinophils Absolute Auto 0.3 X10*3/uL (0.0-0.4); Eosinophils Percent Auto 3.9 % (0-4); Hematocrit 44.4 % (42.0-52.0); Hemoglobin 15.1 g/dl (14.0-18.0); Imm Gran Abs Auto 0.01 X10*3/uL (0.00-0.03); Imm Gran Pct Auto 0.1 % (0.0-0.4); Lymphocytes Absolute Auto 2.2 X10*3/uL (1.2-4.9); Lymphocytes Percent Auto 30.6 % (20-40); Mean Corpuscular Hemoglobin 28.8 pg (27.0-33.0); Mean Corpuscular Volume 84.6 fL (80.0-98.0); Mean Platelet Volume 9.8 fL (9.4-12.4); Monocytes Absolute Auto 0.5 X10*3/uL (0.1-1.2); Monocytes Percent Auto 7.4 % (2-11); Neutrophils Absolute Auto 4.2 x10*3/uL (2.0-8.3); Neutrophils Percent Auto 57.3 % (45-73); Platelet Count 245 X10*3/uL (160-400); Red Blood Count 5.25 X10*6/uL (4.60-5.80); Red Cell Distribution Width 12.2 % (11.0-16.0); White Blood Count 7.3 X10*3/uL (4.8-10.8)
[2023-08-31 13:15] LABS: Bacteria Urine None Seen (None Seen); Hyaline Casts Urine 0-2 /LPF (0-2); RBC Urine 0-2 /HPF (0-2); Squamous Epithelial Cell Urine 0-2 /HPF (0-2); WBC Urine 0-5 /HPF (0-5)
[2023-08-31 13:20] LABS: Alanine Aminotransferase 26 U/L (0-40); Albumin Level 4.1 g/dL (3.5-5.0); Alkaline Phosphatase 56 U/L (39-117); Anion Gap 9 (12-20); Aspartate Amino Transferase 18 U/L (5-37); Bilirubin Direct 0.6 mg/dL (0.0-0.5); Bilirubin Total 1.9 mg/dL (0.0-1.0); Blood Urea Nitrogen 17 mg/dL (9-16); Calcium 9.2 mg/dL (8.4-10.2); Carbon Dioxide 27 mmol/L (22-29); Chloride 105 mmol/L (96-108); Creatinine Clr Calc Pharmacy 96.4; Estimated Glomerular Filt Rate > 60; Glucose Random 205 mg/dL (60-115); Potassium 4.4 mmol/L (3.3-5.1); Sodium 137 mmol/L (135-145); Total Protein 7.1 g/dL (6.5-8.0)
[2023-08-31 17:06] VITALS: BP 111/72; PULSE 83; RESP 18; TEMP 37.2; O2SAT 98
== END 2023-08-31 18:56 | disposition left against medical advice (07) ==
PROVIDERS: Physician Assistant Medical; Emergency Provider Emergency Medicine; PCP Internal Medicine
DX: R30.0 Dysuria (principal); N48.89 Other specified disorders of penis; Z79.899 Other long term (current) drug therapy
CPT/HCPCS: 36415; 80048; 80076; 81001; 81003; 85025; 99282; 99283

== ENCOUNTER 2023-10-19 10:58 | Outpatient (REF) | payer MEDICAID, SELFPAY ==
[2023-10-19 12:13] LABS: Estimated Average Glucose 209 mg/dL; Hemoglobin A1c % 8.9 % (<6.0)
[2023-10-19 12:49] LABS: Alanine Aminotransferase 28 U/L (0-40); Albumin Level 4.1 g/dL (3.5-5.0); Alkaline Phosphatase 53 U/L (39-117); Anion Gap 12 (12-20); Aspartate Amino Transferase 18 U/L (5-37); Bilirubin Total 1.6 mg/dL (0.0-1.0); Blood Urea Nitrogen 17 mg/dL (9-16); Calcium 9.5 mg/dL (8.4-10.2); Carbon Dioxide 28 mmol/L (22-29); Chloride 106 mmol/L (96-108); Estimated Glomerular Filt Rate > 60; Glucose Random 185 mg/dL (60-115); Potassium 4.3 mmol/L (3.3-5.1); Sodium 142 mmol/L (135-145); Total Protein 6.9 g/dL (6.5-8.0)
== END 2023-10-19 10:59 | disposition home or self-care (01) ==
LOC: HO.LAB 10:58
PROVIDERS: PCP Internal Medicine; Visit Provider Internal Medicine
DX: B37.42 Candidal balanitis (principal); E11.65 Type 2 diabetes mellitus with hyperglycemia; I10 Essential (primary) hypertension; R80.9 Proteinuria, unspecified
CPT/HCPCS: 36415; 80053; 83036

== ENCOUNTER 2024-04-25 12:27 | Outpatient (REF) | payer MEDICAID, SELFPAY ==
[2024-04-25 13:01] LABS: Estimated Average Glucose 232 mg/dL; Hemoglobin A1c % 9.7 % (<6.0); Total Hemoglobin (HGBA1C) 3764.2248 umol/L
[2024-04-25 13:22] LABS: Alanine Aminotransferase 32 U/L (0-40); Albumin Level 4.2 g/dL (3.5-5.0); Alkaline Phosphatase 57 U/L (39-117); Anion Gap 11 (12-20); Aspartate Amino Transferase 25 U/L (5-37); Bilirubin Total 1.4 mg/dL (0.0-1.0); Blood Urea Nitrogen 14 mg/dL (9-16); Calcium 9.5 mg/dL (8.4-10.2); Carbon Dioxide 28 mmol/L (22-29); Chloride 106 mmol/L (96-108); Cholesterol 145 mg/dL (<200); Estimated Glomerular Filt Rate > 60; Glucose Random 242 mg/dL (60-115); HDL Cholesterol 65 mg/dL (>40); LDL Cholesterol Calculated 70 mg/dL (<100); Potassium 4.2 mmol/L (3.3-5.1); Sodium 141 mmol/L (135-145); Total Protein 7.1 g/dL (6.5-8.0); Triglycerides 51 mg/dL (<150)
[2024-04-25 13:40] LABS: Prostate Specific Antigen Scr 1.68 ng/mL (<0.05-4.0)
[2024-04-25 14:48] LABS: Creatinine Urine 104.56 mg/dL; Microalbum/Creatinine Ratio Ur 6.6 ug/mg cr (<30)
== END 2024-04-25 12:28 | disposition home or self-care (01) ==
LOC: HO.LAB 12:27
PROVIDERS: PCP Internal Medicine; Visit Provider Internal Medicine
DX: B37.42 Candidal balanitis (principal); E11.65 Type 2 diabetes mellitus with hyperglycemia; I10 Essential (primary) hypertension; L30.4 Erythema intertrigo
CPT/HCPCS: 36415; 80053; 80061; 82043; 82570; 83036; 84153

== ENCOUNTER 2024-08-29 12:16 | Outpatient (REF) | payer MEDICAID, SELFPAY ==
[2024-08-29 13:38] LABS: Estimated Average Glucose 229 mg/dL; Hemoglobin A1c % 9.6 % (<6.0); Total Hemoglobin (HGBA1C) 3782.8544 umol/L
[2024-08-29 14:11] LABS: Alanine Aminotransferase 27 U/L (0-40); Alkaline Phosphatase 58 U/L (39-117); Anion Gap 9 (12-20); Aspartate Amino Transferase 19 U/L (5-37); Bilirubin Total 1.3 mg/dL (0.0-1.0); Blood Urea Nitrogen 16 mg/dL (9-16); Calcium 8.9 mg/dL (8.4-10.2); Carbon Dioxide 29 mmol/L (22-29); Chloride 108 mmol/L (96-108); Estimated Glomerular Filt Rate > 60; Glucose Random 230 mg/dL (60-115); Potassium 4.1 mmol/L (3.3-5.1); Sodium 142 mmol/L (135-145)
== END 2024-08-29 12:17 | disposition home or self-care (01) ==
LOC: HO.LAB 12:16
PROVIDERS: PCP Internal Medicine; Visit Provider Internal Medicine
DX: Z00.01 Encounter for general adult medical examination with abnormal findings (principal); B37.42 Candidal balanitis; E11.65 Type 2 diabetes mellitus with hyperglycemia; E78.00 Pure hypercholesterolemia, unspecified
CPT/HCPCS: 36415; 80053; 83036

== ENCOUNTER 2024-11-28 11:06 | Outpatient (REF) | payer MEDICAID, SELFPAY ==
[2024-11-28 12:16] LABS: Estimated Average Glucose 237 mg/dL; Hemoglobin A1c % 9.9 % (<6.0)
[2024-11-28 12:39] LABS: Alanine Aminotransferase 27 U/L (0-40); Albumin Level 4.2 g/dL (3.5-5.0); Alkaline Phosphatase 57 U/L (39-117); Anion Gap 10 (12-20); Aspartate Amino Transferase 22 U/L (5-37); Bilirubin Total 1.8 mg/dL (0.0-1.0); Blood Urea Nitrogen 15 mg/dL (9-16); Calcium 9.1 mg/dL (8.4-10.2); Carbon Dioxide 30 mmol/L (22-29); Chloride 104 mmol/L (96-108); Estimated Glomerular Filt Rate > 60; Glucose Random 243 mg/dL (60-115); Potassium 4.6 mmol/L (3.3-5.1); Sodium 139 mmol/L (135-145); Total Protein 6.8 g/dL (6.5-8.0)
== END 2024-11-28 11:07 | disposition home or self-care (01) ==
LOC: HO.LAB 11:06
PROVIDERS: PCP Internal Medicine; Visit Provider Internal Medicine
DX: B37.42 Candidal balanitis (principal); E11.65 Type 2 diabetes mellitus with hyperglycemia; Z68.30 Body mass index [BMI] 30.0-30.9, adult
CPT/HCPCS: 36415; 80053; 83036

== ENCOUNTER 2025-03-13 13:47 | Outpatient (REF) | payer MEDICAID, SELFPAY ==
[2025-03-13 15:16] LABS: Total Hemoglobin (HGBA1C) 3821.9448 umol/L
[2025-03-13 15:35] LABS: Alanine Aminotransferase 26 U/L (0-40); Albumin Level 4.4 g/dL (3.5-5.0); Alkaline Phosphatase 58 U/L (39-117); Anion Gap 11 (12-20); Aspartate Amino Transferase 24 U/L (5-37); Blood Urea Nitrogen 14 mg/dL (9-16); Calcium 9.2 mg/dL (8.4-10.2); Carbon Dioxide 29 mmol/L (22-29); Chloride 105 mmol/L (96-108); Estimated Glomerular Filt Rate > 60; Potassium 4.4 mmol/L (3.3-5.1); Sodium 141 mmol/L (135-145); Total Protein 7.1 g/dL (6.5-8.0)
== END 2025-03-13 13:48 | disposition home or self-care (01) ==
LOC: HO.LAB 13:47
PROVIDERS: PCP Internal Medicine; Visit Provider Internal Medicine
DX: E11.65 Type 2 diabetes mellitus with hyperglycemia (principal); R80.9 Proteinuria, unspecified; B37.42 Candidal balanitis; Z91.148 Patient's other noncompliance with medication regimen for other reason; Z68.30 Body mass index [BMI] 30.0-30.9, adult
CPT/HCPCS: 36415; 80053; 83036

== ENCOUNTER 2025-06-05 12:16 | Outpatient (REF) | payer MEDICAID, SELFPAY ==
[2025-06-05 13:14] LABS: Alanine Aminotransferase 27 U/L (0-40); Albumin Level 4.2 g/dL (3.5-5.0); Alkaline Phosphatase 60 U/L (39-117); Anion Gap 9 (12-20); Aspartate Amino Transferase 23 U/L (5-37); Blood Urea Nitrogen 12 mg/dL (9-16); Calcium 8.9 mg/dL (8.4-10.2); Carbon Dioxide 27 mmol/L (22-29); Chloride 108 mmol/L (96-108); Cholesterol 121 mg/dL (<200); Estimated Glomerular Filt Rate > 60; HDL Cholesterol 52 mg/dL (>40); Potassium 4.3 mmol/L (3.3-5.1); Sodium 140 mmol/L (135-145); Total Protein 6.7 g/dL (6.5-8.0); Triglycerides 47 mg/dL (<150)
[2025-06-05 15:07] LABS: Microalbum/Creatinine Ratio Ur 4.9 ug/mg cr (<30)
== END 2025-06-05 12:17 | disposition home or self-care (01) ==
LOC: HO.LAB 12:16
PROVIDERS: PCP Internal Medicine; Visit Provider Internal Medicine
DX: E11.65 Type 2 diabetes mellitus with hyperglycemia (principal); E78.00 Pure hypercholesterolemia, unspecified; K59.00 Constipation, unspecified; R80.9 Proteinuria, unspecified
CPT/HCPCS: 36415; 80053; 80061; 82043; 82570; 83036; 84153